=== PATIENT | male | born 1960 | race Caucasian/White ===

== ENCOUNTER 2018-02-14 16:08 | Observation (INO) | payer MEDICAID, SELFPAY ==
[2018-02-14] VITALS (8 sets, daily range): BP systolic 104–142; BP diastolic 62–85; PULSE 74–100; RESP 15–20; TEMP 36.6–36.8; O2SAT 95–99; BMI 37.5; BMI 35.9
--- NOTE | 2018-02-14 16:34 | CT_ITS ---
STUDY: CT BRAIN WITHOUT CONTRAST REASON FOR EXAM: Male, 57 years old. VERTIGO, LT HAND PARESTHESIA, DIZZINESS, LT SIDED CP, HTN, WEAKNESS RADIATION DOSAGE (If Supplied By Facility): CTDIvol = ( 44.99 ) mGy, DLP = ( 812.98 ) mGycm TECHNIQUE: Transaxial CT imaging of the brain was performed without administration of intravenous contrast material. Individualized dose optimization techniques were used for this CT. COMPARISON: None. FINDINGS: Normal soft tissue structures. Normal calvarium. There are calcifications around the cavernous carotid arteries. This is consistent for atherosclerotic disease. Normal size ventricles and extra-axial spaces for the patient's age. Normal white matter tracts of the cerebral hemispheres. Normal basal ganglia and thalami. Normal brainstem. Normal cerebellum. There is no intracranial hemorrhage. There are no findings of an acute ischemic infarction. Normal visualized paranasal sinuses. CT/Brain/Head without Contrast IMPRESSION: Normal unenhanced CT scan of the brain. Electronically Signed: Mark Moulton MD at 17:09 EDT , Service support ,
--- NOTE | 2018-02-14 16:35 | EKG12_ITS ---
Test Reason : CP Blood Pressure : / mmHG Vent. Rate : 099 BPM Atrial Rate : 099 BPM P-R Int : 146 ms QRS Dur : 100 ms QT Int : 344 ms P-R-T Axes : 028 -17 014 degrees QTc Int : 441 ms Normal sinus rhythm Incomplete right bundle branch block Inferior infarct , age undetermined Abnormal ECG Confirmed by SEDRICK TYLER, FRANCESCA ([id number]), telegraph editor KIERAN FIGUEROA ([id number]) on 02/16/2018 1:29:33 PM Referred By: CIARA Confirmed By:FRANCESCA DUBOSE MD
[2018-02-14] MEDS: Ondansetron 4 MG/2 ML Vial IV (17:00)
[2018-02-14] MEDS: LORazepam 2 MG/ML Syringe 0.5 MG IV (17:00)
[2018-02-14] MEDS: 0.9% Normal Saline 1,000 ML 150 ML IV (17:00)
[2018-02-14 17:06] LABS: Anion Gap 7 (5-15); BUN 16 mg/dL (7-18); BUN/Creat Ratio 15.2 RATIO (10-20); Calcium,Total 9.5 mg/dL (8.5-10.1); Chloride 104 mmol/L (98-107); Creatinine, Serum 1.05 mg/dL (0.70-1.30); EST Glomerular Filtration Rate 77 mL/min (>60); Est Glom Filt Rate - Afr Amer 93 mL/min (>60); Estimated Creatinine Clearance 75.75 ml/min; Glucose 116 mg/dL (74-106); Sodium Level 138 mmol/L (136-145)
[2018-02-14 17:33] LABS: Absolute Lymphocyte Count 1.64 X10^3/ul (0.83-4.51); Absolute Neutrophil Count 5.7 X10^3/uL (2.0-7.7); Basophil# 0.04 X10^3/uL; Basophil% 0.5 % (0-1); Eosinophil# 0.18 X10^3/uL; Eosinophils% 2.2 % (0-5); Hematocrit 48.7 % (40-54); Hemoglobin 16.2 g/dl (13.0-16.5); Lymphocyte # 1.64 X10^3/ul (4.0); Lymphocyte % 20.3 % (19-41); Mean Corp Hgb Conc 33.3 g/gl (32-36); Mean Corpuscular Hgb 29.1 pg (27.0-32.0); Mean Corpuscular Volume 87.6 fL (80-94); Mean Platelet Vol. 12.4 fl (6.2-12.0); Monocyte# 0.52 X10^3/uL; Monocyte% 6.4 % (0-10); Neutrophil # 5.68 X10^3/uL (2.7-7.7); Neutrophil % 70.4 % (47-70); Platelet Count 205 K/mm3 (150-450); RBC Distribution Width CV 14.5 % (11.6-14.6); RBC Distribution Width SD 46.4 fl (35.1-43.9); Red Blood Count 5.56 M/mm3 (4.6-6.2); White Blood Count 8.1 K/mm3 (4.4-11.0)
[2018-02-14 17:38] LABS: POSITIVE COUNT NO; POSITIVE DIFFERENTIAL NO; POSITIVE MORPHOLOGY NO
--- NOTE | 2018-02-14 17:50 | RAD_ITS ---
STUDY: X-RAY CHEST REASON FOR EXAM: Male, 57 years old. Symptoms pt having left sided chest pain started this morning. Describes as sore. dizziness noted last night TECHNIQUE: Single frontal view of the chest. COMPARISON: CR Chest Mar 08 2013 7:04pm FINDINGS: Chronic appearing increased interstitial lung markings. There is no demonstrated pleural abnormality. Normal heart size. Normal mediastinum and steven. Normal visualized pulmonary arteries. There is atherosclerotic calcification of the aortic arch with tortuosity. There are diffuse degenerative changes of the visualized thoracic spine. There is degenerative osteoarthritis of the bilateral shoulders. There is no demonstrated abnormality of the visualized soft tissue structures of the upper abdomen. RAD/Chest 1 View (Portable) IMPRESSION: There are no acute findings. Electronically Signed: Mark Moulton MD at 18:03 EDT , Service support ,
--- NOTE | 2018-02-14 18:55 | ED.VISSUMM ---
- ER Visit Summary Date of Service: 02/14/18 Chief Complaint: Chest pain, vertigo, hand tingling History of Present Illness: The patient is a 57 M who reports waking yesterday morning with vertigo. He has had this several years ago. Last evening he developed some waxing and waning chest pain. He describes the pain as going from his left scapula through to his left chest and then radiated across to the right chest. He denies shortness of breath. He was seen by ENT today and had his ears checked and they were unremarkable. He denies prior cardiac history. Physical Examination: Vital signs unremarkable. Patient sitting upright in bed no acute distress. Head neck examination is grossly unremarkable. Heart is regular rate and rhythm. Lung sounds are clear. Chest wall is nontender. Abdomen is soft and nontender. Neuro exam reveals no focal deficits on his exam. His NIH is 0. Test Results: EKG is sinus at 99 with no sign of acute ischemia. Chest x-ray shows no acute findings. Head CT is unremarkable. CBC and chemistry studies normal. Troponin is less than 0.015. Emergency Department Course and Treatment: Patient received Zofran and Ativan for his vertigo. Following completion of his testing he did pass a bedside swallow test and is given aspirin. Patient reports that his vertigo is improved. His chest pain is very minimal at this time. The tingling noted in his left hand is also improved currently. Patient will be admitted for further workup and evaluation. I spoken with the hospitalist. Treatment Plan: [] Disposition: Admit Impression: 1. Vertigo 2. Chest pain 3. Left hand paresthesias This note was generated with [employer] dictation software. It may contain incorrect words, spelling, and punctuation that were not noted in review of the chart prior to signing ED Disposition - Plan for ED Patient: Chief Complaint: Chest Pain Referrals: Bettina Tamayo MD [Primary Care Provider] -
[2018-02-14] MEDS: Aspirin 81 MG TAB.CHEW 243 MG PO (18:58)
--- NOTE | 2018-02-14 19:03 | HP.PCM_ITS ---
Problem List (1) Chest pain Status: Acute (2) Vertigo Status: Acute (3) Tingling of left upper extremity Status: Acute History of Present Illness Date of Admission: 02/14/18 Chief Complaint: chest pain, vertigo, tingling of left upper extremity The patient is a 57 year old M with a history of vertigo, hypertension, hyperlipidemia and GERD. He was admitted through the ED on 02/14/2018 with a complaint of vertigo which started yesterday. He does have a history of vertigo and states is episodic. He said he had sudden acute onset of vertigo which persisted throughout the day. It started around 8 AM when he woke up and then subsequently resolved. This morning at around 10:30 AM when he woke up, he started having tingling in his left upper arm which was of sudden onset and he is never had it before. The tingling persisted up to the time of review. Vertigo also recurred and so he decided to go and see his ENT doctor. His ears were checked which where normal. Patient also started having chest pain earlier today he describes as pressure-like, left-sided, radiating towards left upper arm. He denied any associated lightheadedness or dizziness, palpitations, diaphoresis, abdominal pain, diarrhea vomiting. He states he had chest pain like this in the past and attributed it to GERD. He has a strong family history of coronary artery disease with his brother dying of a massive heart attack and his other family members also having hypertension diabetes and coronary artery disease. On reviewing the ED, vitals were stable and brain CT was negative for any intracranial pathology. Chest x-ray also showed no acute cardiopulmonary pathology. CBC and BMP were unremarkable. Initial troponin was negative. Is been admitted to be managed for vertigo and chest pain. [] Past Medical History Allergies No Known Allergies Allergy (Verified 02/14/18 16:14) Home Medications: Ambulatory Orders Medication Instructions Recorded Aspirin E.C. [Ecotrin] 81 mg PO DAILY@0800 01/13/16 Citalopram [Celexa] 40 mg PO DAILY 01/13/16 Polyethylene Glycol 3350 [[id number]] 17 gm PO DAILY 01/13/16 Docusate Sodium [Colace] 100 mg PO BID PRN PRN 02/14/18 Fluticasone Propionate 2 sprays NASAL DAILY 02/14/18 Lisinopril/Hydrochlorothiazide 1 tablet PO DAILY 02/14/18 [Zestoretic 12.5 Tablet] Pravastatin Sodium 40 mg PO QHS 02/14/18 Trazodone HCl 50 mg PO QHS PRN 02/14/18 Surgical History: - - bilateral carpal tunnel surgery Psychiatric History: No pertinent psych hx Lives: Alone Smoking Status: Former smoker Tobacco Use: Cigarettes Alcohol: None Drugs: None - *Family History Sibling History Items: High Cholesterol, Heart Disease, Hypertension Paternal History Items: Diabetes, High Cholesterol, Heart Disease, Hypertension Review of Systems Constitutional: Denies: Chills, Fever, Malaise, Weakness, Weight Change Eyes: Denies: Blurred vision, Double vision HEENT: Denies: Head Aches, Sinus Congestion, Sinus Drainage Cardiovascular: Reports: Chest Pain, Chest Pressure. Denies: Chest Tightness, Edema, Heaviness, Light Headedness, Palpitations Respiratory: Denies: Cough, Shortness of Breath, Shortness of breath at rest, Sputum production Gastrointestinal: Denies: Abdominal Pain, Nausea, Vomiting Genitourinary: Denies: Dysuria Musculoskeletal: Denies: Joint Pain, Joint Tenderness Skin: Denies: Rash, Wounds Neurological: Reports: Tingling. Denies: Balance problems, Blurred vision, Change in Speech, Tremor, Seizures Psychiatric: Denies: Anxiety, Depression, Homicidal Ideations, Suicidal Idea tions Hematologic/ Lymphatic: Denies: Easy Bruising, Easy Bleeding VTE Information - Inpt Only VTE Present on Admission: No VTE Pharm Prophylaxis ordered?: Yes Patient Problems: Active and Suspected Problems Chest pain (Acute) Vertigo (Acute) Tingling of left upper extremity (Acute) - Physical Exam General: Alert, Oriented x3, Cooperative, No apparent distress HEENT: Atraumatic, PERRLA, EOMI, Normocephalic Oral: Moist Mucosa Neck: Supple, No JVD, Negative Carotid Bruits Lungs: Clear to auscultation, Normal air movement, No rhonchi, No wheeze Cardiovascular: Regular rate, Regular Rhythm, Normal S1, Normal S2, No murmurs Abdomen: Bowel Sounds Present, Soft, Non Tender, Non-Distended, No Hepato- splenomegaly Extremities: No clubbing, No cyanosis, No edema, Capillary Refill Less than 3 Seconds Skin: No rashes, No breakdown Musculoskeletal: No Tenderness to Palpation of Joints or Extremities Lymphatic: No Cervical, Supraclavicular, or Inguinal Adenopathy Neurological: Cranial nerves II-XII grossly intact, Motor Exam 5/5 strength throughout, Muscle tone normal, - - decreased sensation to pinprick over LUE, extending from hand to mid forearm Psych/Mental Status: Normal Affect, Appropriate, Alert and oriented to time, place, person, mood and affect Vital Signs Temp Pulse Resp BP Pulse Ox 97.9 F 85 17 121/75 H 95 02/14/18 16:11 02/14/18 18:33 02/14/18 18:33 02/14/18 18:33 02/14/18 18:33 Oxygen Delivery Method Room Air Weight: 254 lb 6.615 oz Body Mass Index (BMI) 37.5 Laboratory Tests Past 24 Hrs 02/14/18 02/14/18 16:25 16:25 WBC 8.1 RBC 5.56 Hgb 16.2 Hct 48.7 MCV 87.6 MCH 29.1 MCHC 33.3 RDW 14.5 RDW Differential 46.4 H Plt Count 205 MPV 12.4 H Immature Gran % (Auto) 0.200 Neut % (Auto) 70.4 H Lymph % (Auto) 20.3 Barbour % (Auto) 6.4 Eos % (Auto) 2.2 Baso % (Auto) 0.5 Absolute Neuts (auto) 5.7 Absolute Lymphs (auto) 1.64 Total Counted Not Reportable Sodium 138 Potassium 4.0 Chloride 104 Carbon Dioxide 27.0 Anion Gap 7 BUN 16 Creatinine 1.05 Estim Creat Clear Calc 75.75 Est GFR (MDRD) Af Amer 93 Est GFR (MDRD) Non-Af 77 BUN/Creatinine Ratio 15.2 Glucose 116 H Calcium 9.5 Troponin I < 0.015 Assessment/Plan All Active Problems Chest pain (Acute) Vertigo (Acute) Tingling of left upper extremity (Acute) 57 y/o male presenting with a complaint of vertigo for 2 days and numbness and tingling in his hand for one day 1. Recurrent vertigo * Patient states he started having vertigo in 2013 has it episodically. Has been following up with ENT but has not seen a neurologist before. * Admit to PCU with telemetry * start PO meclizine * neurology consult. * 2. TIA * had tingling in his LUE that started ~ 10:30am today. * still tingling and numbness in LUE * CT head was negative. * EKG showed no acute cardiopulmonary process * keep NPO until he passes bedside swallowing evaluation * MRI brain, MRA head and neck with and without contrast tomorrow morning * already on aspirin; hold pravastatin and start atorvastatin 40 mg nightly. * Check lipid panel and A1c. * Allergy consulted. * 3. Atypical chest pain to rule out ACS. * Complaint of left-sided chest pain radiating to his left arm. Has a strong family history of CAD and brother from massive heart attack. * EKG showed no acute changes. We will cycle troponin. Initial troponin was negative. * For stress echo tomorrow morning. * on aspirin and statin * * 4. Hypertension: on lisinopril and HCTZ. fairly controlled. 5. Hyperlipidemia: Pravastatin was switched to atorvastatin on account of it being moderate intensity. DVT prophylaxis: heparin Code status: full code Code Visit OBSV E&M: 50026 Initial observation care L3
--- NOTE | 2018-02-14 21:14 | EKG12_ITS ---
Test Reason : CP TIA Blood Pressure : / mmHG Vent. Rate : 079 BPM Atrial Rate : 079 BPM P-R Int : 154 ms QRS Dur : 104 ms QT Int : 384 ms P-R-T Axes : 025 -06 020 degrees QTc Int : 440 ms Normal sinus rhythm Cannot rule out Inferior infarct (cited on or before 16-MAR-2013) Abnormal ECG When compared with ECG of 16-MAR-2013 11:27, No significant change was found Confirmed by VIPUL MICHELLE ([id number]), state editor KEIRAN FIGUEROA ([id number]) on 02/22/2018 11:43:12 AM Referred By: TOSHIA Confirmed By:VIPUL MICHELLE
[2018-02-14] MEDS: Heparin Injection (Vial) 5,000 UNIT/ML VIAL 5000 UNIT SC (23:15)
[2018-02-14] MEDS: Atorvastatin Calcium 40 MG Tablet PO (23:15)
[2018-02-15] VITALS (7 sets, daily range): BP systolic 112–135; BP diastolic 62–82; PULSE 64–79; RESP 14–16; TEMP 36.2–37.2; O2SAT 93–98
[2018-02-15 00:23] LABS: Hemoglobin A1c 5.9 % (4.2-6.3)
[2018-02-15 04:36] LABS: Absolute Lymphocyte Count 2.14 X10^3/ul (0.83-4.51); Absolute Neutrophil Count 4.1 X10^3/uL (2.0-7.7); Basophil# 0.02 X10^3/uL; Basophil% 0.3 % (0-1); Eosinophil# 0.25 X10^3/uL; Eosinophils% 3.5 % (0-5); Hematocrit 43.6 % (40-54); Hemoglobin 14.8 g/dl (13.0-16.5); Lymphocyte # 2.14 X10^3/ul (4.0); Lymphocyte % 30.2 % (19-41); Mean Corp Hgb Conc 33.9 g/gl (32-36); Mean Corpuscular Hgb 30.3 pg (27.0-32.0); Mean Corpuscular Volume 89.3 fL (80-94); Mean Platelet Vol. 12.1 fl (6.2-12.0); Monocyte# 0.61 X10^3/uL; Monocyte% 8.6 % (0-10); Neutrophil # 4.06 X10^3/uL (2.7-7.7); Neutrophil % 57.3 % (47-70); Platelet Count 178 K/mm3 (150-450); RBC Distribution Width CV 14.4 % (11.6-14.6); RBC Distribution Width SD 46.7 fl (35.1-43.9); Red Blood Count 4.88 M/mm3 (4.6-6.2); White Blood Count 7.1 K/mm3 (4.4-11.0)
[2018-02-15 04:43] LABS: Partial Thromboplast Time 29.1 Seconds (24.1-36.2); Prothrombin Time (Protime)PT. 13.6 SECONDS (11.7-14.9)
[2018-02-15 04:51] LABS: POSITIVE COUNT NO; POSITIVE DIFFERENTIAL NO; POSITIVE MORPHOLOGY NO
[2018-02-15 05:02] LABS: Anion Gap 7 (5-15); BUN 21 mg/dL (7-18); BUN/Creat Ratio 24.8 RATIO (10-20); Calcium,Total 8.6 mg/dL (8.5-10.1); Chloride 106 mmol/L (98-107); Cholesterol 140 mg/dL (200); Creatinine, Serum 0.85 mg/dL (0.70-1.30); EST Glomerular Filtration Rate 98 mL/min (>60); Est Glom Filt Rate - Afr Amer 119 mL/min (>60); Estimated Creatinine Clearance 96.62 ml/min; Glucose 105 mg/dL (74-106); High Density Lipoprotein 32 mg/dL; Potassium 3.7 mmol/L (3.5-5.1); Sodium Level 141 mmol/L (136-145); Triglycerides 246 mg/dL; Very Low Density Lipoprotein 49 mg/dL (5-40)
--- NOTE | 2018-02-15 05:55 | EKG12_ITS ---
Test Reason : AM EKG Blood Pressure : / mmHG Vent. Rate : 070 BPM Atrial Rate : 070 BPM P-R Int : 144 ms QRS Dur : 108 ms QT Int : 416 ms P-R-T Axes : 019 -01 023 degrees QTc Int : 449 ms Normal sinus rhythm Inferior infarct , age undetermined Abnormal ECG When compared with ECG of 14-FEB-2018 20:28, MANUAL COMPARISON REQUIRED, DATA IS UNCONFIRMED Confirmed by VIPUL MICHELLE ([id number]), supervising editor news reel KIERAN FIGUEROA ([id number]) on 02/22/2018 11:44:06 AM Referred By: TOSHIA Confirmed By:VIPUL MICHELLE
[2018-02-15] MEDS: Lisinopril 10 MG Tablet PO (06:35)
[2018-02-15] MEDS: Aspirin E.C. 81 MG Tablet PO (06:35)
--- NOTE | 2018-02-15 08:00 | MRI_ITS ---
STUDY: MRA OF THE HEAD WITHOUT CONTRAST REASON FOR EXAM: Male, 57 years old. Dizziness, numbness, and left upper extremity tingling. TECHNIQUE: 3-D [id number] (TOF) imaging was performed with MIPs. The study was performed unenhanced. Multiple images are limited by patient motion. COMPARISON: None. FINDINGS: Normal bilateral petrous carotid arteries. Normal right cavernous carotid artery with a normal supraclinoid bifurcation. Normal left cavernous carotid artery with a normal supraclinoid bifurcation. Normal right A1 segments of the anterior cerebral artery. Normal left A1 segments of the anterior cerebral artery. Normal intact anterior communicating artery (ACOM). Normal bilateral A2 segments of the anterior cerebral arteries. There is irregularity of the right M1 and M2 branches with minimal luminal narrowing, suggesting atherosclerotic plaque formation, without an occlusion. There is irregularity of the left M1 and M2 branches with minimal luminal narrowing, suggesting atherosclerotic plaque formation, without an occlusion. There is a persistent origin of the right posterior cerebral artery with absence of the P1 segment of the right posterior cerebral artery. There is non-visualization of the left posterior communicating artery (PCOM). Normal bilateral vertebral arteries. There is tortuosity with elongation of the basilar artery. The visualized bilateral superior cerebellar (SCA) arteries are normal. There is absence of the right P1 segment of the posterior cerebral arteries with a normal left P1 segment. Normal visualized bilateral P2 and P3 segments of the posterior cerebral arteries. There is no demonstrated aneurysm of the [place]. There is no major vessel occlusion or hemodynamically significant stenosis. There is no demonstrated abnormality of the visualized brain. MRI/MRA Head ONLY without Contrast IMPRESSION: 1. Limited MRA due to patient motion. 2. No definite hemodynamically significant stenosis or aneurysm. Electronically Signed: Dhara Vigil MD at 11:21 EDT , Service support ,
--- NOTE | 2018-02-15 08:00 | MRI_ITS ---
STUDY: MRA NECK WITH AND WITHOUT CONTRAST REASON FOR EXAM: Male, 57 years old. Dizziness, numbness; and left upper extremity tingling. TECHNIQUE: 3-D imas-ru-[id number] (TOF) imaging was performed in an 1.5 T MRI scanner. 10 ml of Gadavist was administered for the contrast enhanced images. The unenhanced images are nondiagnostic secondary to patient motion. COMPARISON: Prior comparison studies are not available for review at this time. FINDINGS: RIGHT CAROTID ARTERIES: Normal right common carotid artery (CCA). Normal right common carotid bulb. Normal origin of the right internal carotid (ICA) artery without a hemodynamically significant stenosis. Normal visualized cervical portion of the right internal carotid artery. Normal origin of the right external carotid artery (ECA). LEFT CAROTID ARTERIES: Normal left common carotid artery (CCA). Normal left common carotid bulb. Normal origin of the left internal carotid (ICA) artery without a hemodynamically significant stenosis. Normal visualized cervical portion of the left internal carotid artery. Normal origin of the left external carotid artery (ECA). VERTEBRAL ARTERIES: Normal antegrade flow within the bilateral vertebral artery without a hemodynamically significant stenosis. MRI/MRA Neck WITH and W/O Contrast IMPRESSION: No MRA evidence for hemodynamically significant stenosis, thrombosis or dissection. Electronically Signed: Dhara Vigil MD at 11:25 EDT , Service support ,
--- NOTE | 2018-02-15 08:00 | MRI_ITS ---
STUDY: MRI BRAIN WITHOUT CONTRAST REASON FOR EXAM: Male, 57 years old. Dizziness, numbness and left upper extremity tingling. TECHNIQUE: Standardized multiplanar fat and water weighted pulse sequences were obtained. Several images are limited by patient motion. COMPARISON: CT of the head dated February 14, 2018. FINDINGS: Normal size of the ventricles and extra-axial spaces for the patient's age. There are a limited number of small white matter hyperintensities, distributed throughout the deep white matter tracts of the cerebral hemispheres, consistent with mild chronic white matter ischemic changes. There is no evidence for recent intracranial ischemia or other cause of cytotoxic edema on diffusion weighted imaging (DWI). Normal T2* images of the brain without demonstrated susceptibility artifact. There is no demonstrated hemosiderin stain. Normal bilateral basal ganglia. Normal thalami. There is no extra-axial fluid accumulation. Normal flow voids within the major intracranial circulation suggesting patency by spin echo criteria. Normal sella turcica, pituitary gland, infundibular stalk, optic chiasm and hypothalamus. Normal tectal plate and pineal gland. Normal midbrain, caridad and medulla. Normal cerebellum. There are large basal cisterns. Normal bilateral temporal bones. Normal bilateral internal auditory canals. No demonstrated orbital abnormality, within the constraints of a routine brain study. Normal visualized paranasal sinuses. Normal calvarium and skull base. Normal visualized soft tissue structures. There are degenerative changes of the anterior atlantoaxial articulation. MRI/Brain without Contrast IMPRESSION: 1. Involutional changes of the brain, as described above. 2. No MR evidence for acute infarct. Electronically Signed: Dhara Vigil MD at 10:47 EDT , Service support ,
--- NOTE | 2018-02-15 09:17 | STRESSREP_ITS ---
Stress Test Report Date: 02/15/2018 Procedure: Pharmacologic stress nuclear imaging study Indications: Chest pain Consent: Per the patient Procedure: The patient underwent pharmacologic (Regadenoson) evaluation with a peak heart rate of 104 beats per minute (64 predicted maximal heart rate) and a peak blood pressure of 160/86 mmHg. The baseline ECG demonstrated normal sinus rhythm. The peak pharmacologic ECG demonstrated no obvious ECG changes. There were no cardiac dysrhythmias pretest, during pharmacologic infusion, or recovery. There was no complaint of chest discomfort during pharmacologic infusion or recovery. The examination was discontinued secondary to completion of protocol. Impression: 1. Pharmacologic (Regadenoson) evaluation 2. Peak pharmacologic ECG with no obvious ECG changes. 3. There were no cardiac dysrhythmias pretest, during pharmacologic infusion, or recovery. 4. Nuclear images pending Myocardial perfusion imaging study: Technique: The patient was injected with 14.8 millicuries of technetium 99m Cardiolite and subsequently rest SPECT Cardiolite nuclear imaging was obtained in the horizontal long, vertical long, and short axis views. The patient underwent pharmacologic (Regadenoson) evaluation with a peak heart rate of 104 beats per minute (64 % percent predicted maximal heart rate) and a peak blood pressure of 160/86 mmHg. The patient was injected with 44.3 millicuries of technetium 99m Cardiolite and subsequently stress SPECT Cardiolite nuclear imaging was obtained in the horizontal long, vertical long, and short axis views. A gated Cardiolite study at peak stress was obtained. Interpretation: Rest and stress SPECT Cardiolite nuclear imaging status post realignment, normalization, and attenuation correction demonstrate extracardiac/gastrointestinal tracer uptake, otherwise, there appears to be relative uniform tracer uptake/myocardial perfusion. There is end systolic thickening and brightening. The gated Cardiolite study demonstrates myocardial thickening and inward wall motion. The reported LVEF is 74 %. Impression: 1. And stress SPECT currently nuclear imaging demonstrate myocardial perfusion changes appearing compatible with extracardiac/gastrointestinal tracer uptake, otherwise, there appears to be relative uniform tracer uptake and myocardial perfusion appearing within normal limits. 2. The gated Cardiolite study reports an LVEF of 74 %. This note was generated with [employer] software. It may contain incorrect words, spelling, and punctuation that were not noted in checking the note before signing.
[2018-02-15] MEDS: hydroCHLOROthiazide 12.5mg 12.5 MG PO (10:04)
[2018-02-15] MEDS: Citalopram 40 MG TABLET PO (10:04)
[2018-02-15] MEDS: Pantoprazole Sodium 20 MG Tablet PO (10:04)
--- NOTE | 2018-02-15 11:57 | CON.PCM_ITS ---
Reason for Consult Date of Consultation: 02/15/18 Reason for Consultation: VERTIGO History of Present Illness: The patient is a 57 year old right handed white male with long history vertigo, now admitted for chest pain, resolved. no vertigo now. no focal neurologic complaints per admit h and p:The patient is a 57 year old M with a history of vertigo, hypertension, hyperlipidemia and GERD. He was admitted through the ED on 02/14/2018 with a complaint of vertigo which started yesterday. He does have a history of vertigo and states is episodic. He said he had sudden acute onset of vertigo which persisted throughout the day. It started around 8 AM when he woke up and then subsequently resolved. This morning at around 10:30 AM when he woke up, he started having tingling in his left upper arm which was of sudden onset and he is never had it before. The tingling persisted up to the time of review. Vertigo also recurred and so he decided to go and see his ENT doctor. His ears were checked which where normal. Patient also started having chest pain earlier today he describes as pressure-like, left-sided, radiating towards left upper arm. He denied any associated lightheadedness or dizziness, palpitations, diaphoresis, abdominal pain, diarrhea vomiting. He states he had chest pain like this in the past and attributed it to GERD. He has a strong family history of coronary artery disease with his brother dying of a massive heart attack and his other family members also having hypertension diabetes and coronary artery disease. On reviewing the ED, vitals were stable and brain CT was negative for any intracranial pathology. Chest x-ray also showed no acute cardiopulmonary pathology. CBC and BMP were unremarkable. Initial troponin was negative. Is been admitted to be managed for vertigo and chest pain. Past Medical History Allergies No Known Allergies Allergy (Verified 02/14/18 16:14) Home Medications: Ambulatory Orders Medication Instructions Recorded Aspirin E.C. [Ecotrin] 81 mg PO DAILY@0800 01/13/16 Citalopram [Celexa] 40 mg PO DAILY 01/13/16 Polyethylene Glycol 3350 [[id number]] 17 gm PO DAILY 01/13/16 Docusate Sodium [Colace] 100 mg PO BID PRN PRN 02/14/18 Fluticasone Propionate 2 sprays NASAL DAILY 02/14/18 Lisinopril/Hydrochlorothiazide 1 tablet PO DAILY 02/14/18 [Zestoretic 12.5 Tablet] Pravastatin Sodium 40 mg PO QHS 02/14/18 Trazodone HCl 50 mg PO QHS PRN 02/14/18 Surgical History: - - bilateral carpal tunnel surgery Psychiatric History: No pertinent psych hx Lives: Alone Smoking Status: Former smoker Tobacco Use: Cigarettes Alcohol: None Drugs: None - *Family History Sibling History Items: High Cholesterol, Heart Disease, Hypertension Paternal History Items: Diabetes, High Cholesterol, Heart Disease, Hypertension Review of Systems Constitutional: Denies: Chills, Fever, Weight Change HEENT: Denies: Head Aches, Sinus Congestion, Sinus Drainage Cardiovascular: Reports: Chest Pain. Denies: Palpitations Respiratory: Denies: Cough, Shortness of breath at rest, Sputum production Gastrointestinal: Denies: Abdominal Pain, Nausea, Vomiting Genitourinary: Denies: Dysuria Musculoskeletal: Denies: Joint Pain, Joint Tenderness Skin: Denies: Rash, Wounds Neurological: Reports: Headaches, - - vertigo. Denies: Focal weakness, Numbness, Tingling Psychiatric: Denies: Anxiety, Depression, Homicidal Ideations, Suicidal Ideations Hematologic/ Lymphatic: Denies: Easy Bruising, Easy Bleeding Patient Problems: Active and Suspected Problems Chest pain (Acute) Vertigo (Acute) Tingling of left upper extremity (Acute) - Physical Exam General: Alert, Oriented x3, Cooperative HEENT: Atraumatic, PERRLA, EOMI, Normocephalic Musculoskeletal: No Tenderness to Palpation of Joints or Extremities Neurological: Cranial nerves II-XII grossly intact Psych/Mental Status: Normal Affect, Appropriate Vital Signs Temp Pulse Resp BP Pulse Ox 36.2 C L 79 16 135/71 H 93 02/15/18 08:09 02/15/18 11:25 02/15/18 08:09 02/15/18 08:09 02/15/18 08:09 Oxygen Delivery Method Room Air Weight: 113.5 kg Body Mass Index (BMI) 35.9 Intake and Output for Last 24 Hours 02/13/18 02/14/18 02/15/18 23:59 23:59 23:59 Intake Total 200 / 200 Balance 200 / 200 Laboratory Tests Past 24 Hrs 02/14/18 02/14/18 02/14/18 16:25 16:25 16:25 WBC 8.1 RBC 5.56 Hgb 16.2 Hct 48.7 MCV 87.6 MCH 29.1 MCHC 33.3 RDW 14.5 RDW Differential 46.4 H Plt Count 205 MPV 12.4 H Immature Gran % (Auto) 0.200 Neut % (Auto) 70.4 H Lymph % (Auto) 20.3 [place] % (Auto) 6.4 Eos % (Auto) 2.2 Baso % (Auto) 0.5 Absolute Neuts (auto) 5.7 Absolute Lymphs (auto) 1.64 Total Counted Not Reportable PT INR APTT Sodium 138 Potassium 4.0 Chloride 104 Carbon Dioxide 27.0 Anion Gap 7 BUN 16 Creatinine 1.05 Estim Creat Clear Calc 75.75 Est GFR (MDRD) Af Amer 93 Est GFR (MDRD) Non-Af 77 BUN/Creatinine Ratio 15.2 Glucose 116 H Hemoglobin A1c 5.9 Calcium 9.5 Troponin I < 0.015 Triglycerides Cholesterol LDL Cholesterol VLDL Cholesterol HDL Cholesterol 02/14/18 02/14/18 02/15/18 20:20 22:56 04:20 WBC 7.1 RBC 4.88 Hgb 14.8 Hct 43.6 MCV 89.3 MCH 30.3 MCHC 33.9 RDW 14.4 RDW Differential 46.7 H Plt Count 178 MPV 12.1 H Immature Gran % (Auto) 0.100 Neut % (Auto) 57.3 Lymph % (Auto) 30.2 [place] % (Auto) 8.6 Eos % (Auto) 3.5 Baso % (Auto) 0.3 Absolute Neuts (auto) 4.1 Absolute Lymphs (auto) 2.14 Total Counted Not Reportable PT INR APTT Sodium Potassium Chloride Carbon Dioxide Anion Gap BUN Creatinine Estim Creat Clear Calc Est GFR (MDRD) Af Amer Est GFR (MDRD) Non-Af BUN/Creatinine Ratio Glucose Hemoglobin A1c Calcium Troponin I < 0.015 < 0.015 Triglycerides Cholesterol LDL Cholesterol VLDL Cholesterol HDL Cholesterol 02/15/18 02/15/18 04:20 04:20 WBC RBC Hgb Hct MCV MCH MCHC RDW RDW Differential Plt Count MPV Immature Gran % (Auto) Neut % (Auto) Lymph % (Auto) [place] % (Auto) Eos % (Auto) Baso % (Auto) Absolute Neuts (auto) Absolute Lymphs (auto) Total Counted PT 13.6 INR 1.0 APTT 29.1 Sodium 141 Potassium 3.7 Chloride 106 Carbon Dioxide 28.0 Anion Gap 7 BUN 21 H Creatinine 0.85 Estim Creat Clear Calc 96.62 Est GFR (MDRD) Af Amer 119 Est GFR (MDRD) Non-Af 98 BUN/Creatinine Ratio 24.8 H Glucose 105 Hemoglobin A1c Calcium 8.6 Troponin I Triglycerides 246 H Cholesterol 140 LDL Cholesterol 59 VLDL Cholesterol 49 H HDL Cholesterol 32 L mri reviewed, normal mra head and neck normal Assessment/Plan All Active Problems Chest pain (Acute) Vertigo (Acute) Tingling of left upper extremity (Acute) vertigo, chronic, currently in remission rec: increased activity samra out pt followup
--- NOTE | 2018-02-15 14:03 | DCINST_ITS ---
- Discharge Diagnoses Current Active Problems: Current Active and Chronic Problems Chest pain (Acute) Vertigo (Acute) Tingling of left upper extremity (Acute) You will use the following diet at home:: Calorie/Carbohydrate Controlled (specify 1200, 1400, etc) - 1800 wendi per day, Cardiac - <2 g sodium daily Your food should be the consistency of: Regular Your liquids should be the consistency of: Regular/Thin Discharge Activity: Return to Normal Activity Instructions: ED Chest Pain NonCardiac Allergies/Adverse Reactions: Allergies No Known Allergies Allergy (Verified 02/14/18 16:14) Medications to take at Discharge Aspirin E.C. [Ecotrin] 81 mg PO DAILY@0800 01/13/16 Citalopram [Celexa] 40 mg PO DAILY 01/13/16 Polyethylene Glycol 3350 17 gm PO DAILY 01/13/16 Docusate Sodium [Colace] 100 mg PO BID PRN PRN 02/14/18 Fluticasone Propionate 2 sprays NASAL DAILY 02/14/18 Lisinopril/Hydrochlorothiazide [Zestoretic 02/04.5 Tablet] 1 tablet PO DAILY 02/14/18 Pravastatin Sodium 40 mg PO QHS 02/14/18 Trazodone HCl 50 mg PO QHS PRN 02/14/18 Primary Care Physician: Bettina Tamayo MD [Primary Care Provider] - Please follow up with your Primary Care Physician in: 1-2 weeks Test Results: Test results from this visit will be discussed in further detail at your follow- up appointment, if applicable. Please Follow Up With: Frankie Way MD When: 3-4 weeks Please Follow Up With: ENT - your own When: 1-2 days Proposed Discharge Date: 02/15/18
--- NOTE | 2018-02-15 14:08 | DS.PCM_ITS ---
<Rick Nuñez - Last Filed: 02/15/18 14:09> Discharge Date and Diagnosis Date of Admission: 02/14/18 Date of Discharge: 02/15/18 - Primary Discharge Diagnosis Active and Suspected Problems Chest pain (Acute) - musculoskeletal Vertigo (Acute) - BPPV Tingling of left upper extremity (Acute) - TIA ruled out. Prediabetes HTN HLD Anxiety GERD Hospital Course and Treatment Imaging Results: 02/15/18 06:15 Nuclear Stress Test - Chemical [NM] Routine Impression: 1. And stress SPECT currently nuclear imaging demonstrate myocardial perfusion changes appearing compatible with extracardiac/gastrointestinal tracer uptake, otherwise, there appears to be relative uniform tracer uptake and myocardial perfusion appearing within normal limits. 2. The gated Cardiolite study reports an LVEF of 74 %. CT/Brain/Head without Contrast IMPRESSION: Normal unenhanced CT scan of the brain. RAD/Chest 1 View (Portable) IMPRESSION: There are no acute findings. MRI/Brain without Contrast IMPRESSION: 1. Involutional changes of the brain, as described above. 2. No MR evidence for acute infarct. MRI/MRA Head ONLY without Contrast IMPRESSION: 1. Limited MRA due to patient motion. 2. No definite hemodynamically significant stenosis or aneurysm. MRI/MRA Neck WITH and W/O Contrast IMPRESSION: No MRA evidence for hemodynamically significant stenosis, thrombosis or dissection. Consults: Way - Neuro Operations: None Procedures: None Summary of Care Provided: Physical exam on day of discharge: General: Resting comfortably NAD Psych: A/Ox3 normal affect HEENT: PEARRLA AT NC Neck: Supple NT CV: RRR no m/t/r/g/h Resp: CTA Abd: [id number] Soft NT no guarding or rigidity Ext: DP2+= no edema Skin: W/D normal turgor Lymph/Heme: No active bleeding or adenopathy Neuro: CN2-12 intact Hospital course: The patient is a 57 year old M with a hx of obesity, prediabetes, htn, chronic BPPV, who presents to the ER with c/o chest pain with LUE tingling, and episodic vertigo, and headache over the top facet.. The patient has chronic BPPV for which he sees ENT and has had vestibular therapy in the past. He had a CT brain in the ER that showed chronic changes. Chest pain was left-sided and radiating to the left arm. Troponin was negative EKG showed no acute changes. He is admitted for TIA and chest pain workup. Neurology was consulted. The following morning he had a stress echo which was negative for ischemia. Troponin was negative x3. No events on telemetry. MRI of the brain, MRA of the head and neck were all negative. Neurology felt that his symptoms were consistent with his chronic vertigo and recommended outpatient follow-up and Garcia-Chris manuevers. He had a mild headache the following morning however had no other symptoms. As part of his stroke workup and A1c was checked which revealed prediabetes with an A1c of 5.9. Recommended a carb controlled diet at this time and follow-up with his PCP. He follows with ENT as an outpatient for chronic vertigo and was told on his last visit which was in the last week that he should follow-up after getting out of the hospital in 1-2 weeks. I advised him to maintain this follow-up, and follow-up with his PCP in 1-2 weeks, and to follow- up with neurology in 3-4 weeks. This patient was seen by Rick Nuñez PA-C under the supervision of Doctor Lowe. [] - Physical Exam General: Alert, Oriented x3, Cooperative HEENT: Atraumatic, PERRLA, EOMI, Normocephalic Neck: Supple, No JVD, Negative Carotid Bruits Lungs: Clear to auscultation, Normal air movement Cardiovascular: Regular rate, No murmurs Abdomen: Bowel Sounds Present, Soft, Non Tender Extremities: No edema, Capillary Refill Less than 3 Seconds Skin: No rashes, No breakdown Musculoskeletal: No Tenderness to Palpation of Joints or Extremities Neurological: Cranial nerves II-XII grossly intact Psych/Mental Status: Normal Affect, Appropriate, Alert and oriented to time, place, person, mood and affect Vital Signs Temp Pulse Resp BP Pulse Ox 97.1 F L 79 16 135/71 H 93 02/15/18 08:09 02/15/18 11:25 02/15/18 08:09 02/15/18 08:09 02/15/18 08:09 Oxygen Delivery Method Room Air Weight: 250 lb 3.594 oz Body Mass Index (BMI) 35.9 Intake and Output for Last 24 Hours 02/13/18 02/14/18 02/15/18 23:59 23:59 23:59 Intake Total 200 / 200 500 / 500 Balance 200 / 200 500 / 500 Laboratory Tests Past 24 Hrs 02/14/18 02/14/18 02/14/18 16:25 16:25 16:25 WBC 8.1 RBC 5.56 Hgb 16.2 Hct 48.7 MCV 87.6 MCH 29.1 MCHC 33.3 RDW 14.5 RDW Differential 46.4 H Plt Count 205 MPV 12.4 H Immature Gran % (Auto) 0.200 Neut % (Auto) 70.4 H Lymph % (Auto) 20.3 [place] % (Auto) 6.4 Eos % (Auto) 2.2 Baso % (Auto) 0.5 Absolute Neuts (auto) 5.7 Absolute Lymphs (auto) 1.64 Total Counted Not Reportable PT INR APTT Sodium 138 Potassium 4.0 Chloride 104 Carbon Dioxide 27.0 Anion Gap 7 BUN 16 Creatinine 1.05 Estim Creat Clear Calc 75.75 Est GFR (MDRD) Af Amer 93 Est GFR (MDRD) Non-Af 77 BUN/Creatinine Ratio 15.2 Glucose 116 H Hemoglobin A1c 5.9 Calcium 9.5 Troponin I < 0.015 Triglycerides Cholesterol LDL Cholesterol VLDL Cholesterol HDL Cholesterol 02/14/18 02/14/18 02/15/18 20:20 22:56 04:20 WBC 7.1 RBC 4.88 Hgb 14.8 Hct 43.6 MCV 89.3 MCH 30.3 MCHC 33.9 RDW 14.4 RDW Differential 46.7 H Plt Count 178 MPV 12.1 H Immature Gran % (Auto) 0.100 Neut % (Auto) 57.3 Lymph % (Auto) 30.2 [place] % (Auto) 8.6 Eos % (Auto) 3.5 Baso % (Auto) 0.3 Absolute Neuts (auto) 4.1 Absolute Lymphs (auto) 2.14 Total Counted Not Reportable PT INR APTT Sodium Potassium Chloride Carbon Dioxide Anion Gap BUN Creatinine Estim Creat Clear Calc Est GFR (MDRD) Af Amer Est GFR (MDRD) Non-Af BUN/Creatinine Ratio Glucose Hemoglobin A1c Calcium Troponin I < 0.015 < 0.015 Triglycerides Cholesterol LDL Cholesterol VLDL Cholesterol HDL Cholesterol 02/15/18 02/15/18 04:20 04:20 WBC RBC Hgb Hct MCV MCH MCHC RDW RDW Differential Plt Count MPV Immature Gran % (Auto) Neut % (Auto) Lymph % (Auto) [place] % (Auto) Eos % (Auto) Baso % (Auto) Absolute Neuts (auto) Absolute Lymphs (auto) Total Counted PT 13.6 INR 1.0 APTT 29.1 Sodium 141 Potassium 3.7 Chloride 106 Carbon Dioxide 28.0 Anion Gap 7 BUN 21 H Creatinine 0.85 Estim Creat Clear Calc 96.62 Est GFR (MDRD) Af Amer 119 Est GFR (MDRD) Non-Af 98 BUN/Creatinine Ratio 24.8 H Glucose 105 Hemoglobin A1c Calcium 8.6 Troponin I Triglycerides 246 H Cholesterol 140 LDL Cholesterol 59 VLDL Cholesterol 49 H HDL Cholesterol 32 L Discharge Diet: Low fat/ Low Cholesterol, 1800 Calorie Control Diet, 2000 mg Sodium Diet Discharge Activity: Return to Normal Activity Home Medications: Medications to take at Discharge Aspirin E.C. [Ecotrin] 81 mg PO DAILY@0800 01/13/16 Citalopram [Celexa] 40 mg PO DAILY 01/13/16 Polyethylene Glycol 3350 17 gm PO DAILY 01/13/16 Docusate Sodium [Colace] 100 mg PO BID PRN PRN 02/14/18 Fluticasone Propionate 2 sprays NASAL DAILY 02/14/18 Lisinopril/Hydrochlorothiazide [Zestoretic 02/04.5 Tablet] 1 tablet PO DAILY 02/14/18 Pravastatin Sodium 40 mg PO QHS 02/14/18 Trazodone HCl 50 mg PO QHS PRN 02/14/18 Primary Care Physician: Bettina Tamayo MD [Primary Care Provider] - Please follow up with your Primary Care Physician in: 1-2 weeks Please Follow Up With: Frankie Way MD When: 3-4 weeks Please Follow Up With: ENT - your own When: 1-2 days Patient Instructions: ED Chest Pain NonCardiac Disposition: Home Minutes spent on discharge:: 40 Patient Condition:: Stable Medical Necessity - Tobacco Use Smoking Status: Former smoker Tobacco Use: Cigarettes Meaningful Use Info Meaningful Use Diagnoses (Choose all that apply): None applicable <Sheldon Lowe - Last Filed: 02/15/18 16:14> Hospital Course and Treatment Imaging Results: 02/15/18 08:00 Brain without Contrast [MRI] Urgent MRA Head ONLY without Contrast [MRI] Urgent MRI [MRA Neck WITH and W/O Contrast] [MRI] Urgent Summary of Care Provided: The patient is a 57 year old M [] - Physical Exam Vital Signs Temp Pulse Resp BP Pulse Ox 99.0 F 67 16 131/82 H 98 02/15/18 14:58 02/15/18 14:58 02/15/18 14:58 02/15/18 14:58 02/15/18 14:58 Oxygen Delivery Method Room Air Weight: 250 lb 3.594 oz Body Mass Index (BMI) 35.9 Intake and Output for Last 24 Hours 02/13/18 02/14/18 02/15/18 23:59 23:59 23:59 Intake Total 200 / 200 500 / 500 Balance 200 / 200 500 / 500 Laboratory Tests Past 24 Hrs 02/14/18 02/14/18 02/14/18 16:25 16:25 16:25 WBC 8.1 RBC 5.56 Hgb 16.2 Hct 48.7 MCV 87.6 MCH 29.1 MCHC 33.3 RDW 14.5 RDW Differential 46.4 H Plt Count 205 MPV 12.4 H Immature Gran % (Auto) 0.200 Neut % (Auto) 70.4 H Lymph % (Auto) 20.3 [place] % (Auto) 6.4 Eos % (Auto) 2.2 Baso % (Auto) 0.5 Absolute Neuts (auto) 5.7 Absolute Lymphs (auto) 1.64 Total Counted Not Reportable PT INR APTT Sodium 138 Potassium 4.0 Chloride 104 Carbon Dioxide 27.0 Anion Gap 7 BUN 16 Creatinine 1.05 Estim Creat Clear Calc 75.75 Est GFR (MDRD) Af Amer 93 Est GFR (MDRD) Non-Af 77 BUN/Creatinine Ratio 15.2 Glucose 116 H Hemoglobin A1c 5.9 Calcium 9.5 Troponin I < 0.015 Triglycerides Cholesterol LDL Cholesterol VLDL Cholesterol HDL Cholesterol 02/14/18 02/14/18 02/15/18 20:20 22:56 04:20 WBC 7.1 RBC 4.88 Hgb 14.8 Hct 43.6 MCV 89.3 MCH 30.3 MCHC 33.9 RDW 14.4 RDW Differential 46.7 H Plt Count 178 MPV 12.1 H Immature Gran % (Auto) 0.100 Neut % (Auto) 57.3 Lymph % (Auto) 30.2 [place] % (Auto) 8.6 Eos % (Auto) 3.5 Baso % (Auto) 0.3 Absolute Neuts (auto) 4.1 Absolute Lymphs (auto) 2.14 Total Counted Not Reportable PT INR APTT Sodium Potassium Chloride Carbon Dioxide Anion Gap BUN Creatinine Estim Creat Clear Calc Est GFR (MDRD) Af Amer Est GFR (MDRD) Non-Af BUN/Creatinine Ratio Glucose Hemoglobin A1c Calcium Troponin I < 0.015 < 0.015 Triglycerides Cholesterol LDL Cholesterol VLDL Cholesterol HDL Cholesterol 02/15/18 02/15/18 04:20 04:20 WBC RBC Hgb Hct MCV MCH MCHC RDW RDW Differential Plt Count MPV Immature Gran % (Auto) Neut % (Auto) Lymph % (Auto) [place] % (Auto) Eos % (Auto) Baso % (Auto) Absolute Neuts (auto) Absolute Lymphs (auto) Total Counted PT 13.6 INR 1.0 APTT 29.1 Sodium 141 Potassium 3.7 Chloride 106 Carbon Dioxide 28.0 Anion Gap 7 BUN 21 H Creatinine 0.85 Estim Creat Clear Calc 96.62 Est GFR (MDRD) Af Amer 119 Est GFR (MDRD) Non-Af 98 BUN/Creatinine Ratio 24.8 H Glucose 105 Hemoglobin A1c Calcium 8.6 Troponin I Triglycerides 246 H Cholesterol 140 LDL Cholesterol 59 VLDL Cholesterol 49 H HDL Cholesterol 32 L Code Visit Addendum: Dr. Lowe I personally examined the patient and reviewed the chart. I agree with the above. 57-year-old male with past medical history of vertigo, presenting with chest pain and tingling of his left upper extremity. He was worked up both for cardiac injury and stroke. Test test this morning was normal and his workup for stroke was negative. Neurology was consulted and felt that a lot of his symptoms could be explained with his chronic vertigo and recommended increased activity and outpatient follow-up. OBSV E&M: 14014 Observation care discharge
== END 2018-02-15 14:02 | disposition home or self-care (01) ==
LOC: ED 17:08 → PCU 19:14
PROVIDERS: Admitting Provider Student in an Organized Health Care Education/Training Program; Emergency Provider Emergency Medicine; Family Provider Internal Medicine; PCP Internal Medicine; Visit Provider Family Medicine
DX: R07.89 Other chest pain (principal); I10 Essential (primary) hypertension; E78.5 Hyperlipidemia, unspecified; R73.03 Prediabetes; K21.9 Gastro-esophageal reflux disease without esophagitis; F41.9 Anxiety disorder, unspecified; H81.10 Benign paroxysmal vertigo, unspecified ear; R20.2 Paresthesia of skin; Z82.49 Family history of ischemic heart disease and other diseases of the circulatory system; I25.10 Atherosclerotic heart disease of native coronary artery without angina pectoris; Z79.899 Other long term (current) drug therapy; Z79.82 Long term (current) use of aspirin; Z79.51 Long term (current) use of inhaled steroids; Z87.891 Personal history of nicotine dependence
CPT/HCPCS: 36415; 70450; 70544; 70549; 70551; 71045; 78452; 80048; 80061; 83036; 84484; 85025; 85610; 85730; 93005; 93017; 96361; 96372; 96374; 96375; 99218; 99283; A9500; A9585; J7030; A4216; G0378; J2405; J2785

== ENCOUNTER → 2018-04-05 20:05 | Outpatient (CLI) | payer MEDICAID, SELFPAY | PROVIDERS: Family Provider Internal Medicine; PCP Internal Medicine; Visit Provider Nurse Practitioner Primary Care | DX: G47.10 Hypersomnia, unspecified (principal); R06.83 Snoring; R53.83 Other fatigue | CPT/HCPCS: 95810 ==

== ENCOUNTER → 2018-05-02 20:00 | Outpatient (CLI) | payer MEDICAID, SELFPAY | PROVIDERS: Family Provider Internal Medicine; PCP Internal Medicine; Referring Provider Internal Medicine; Visit Provider Internal Medicine | DX: G47.33 Obstructive sleep apnea (adult) (pediatric) (principal) | CPT/HCPCS: 95811 ==

== ENCOUNTER 2019-10-17 14:39 | Emergency (ER) | payer MEDICAID, SELFPAY ==
[2019-10-17] VITALS (9 sets, daily range): BP systolic 126–151; BP diastolic 70–85; PULSE 70–78; RESP 13–24; TEMP 37; O2SAT 19–98; BMI 38.7
--- NOTE | 2019-10-17 15:14 | ED.DCSUM_ITS ---
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 Negative for: Parasthesia, Weakness Narrative: Patient was on a slope he was loading something into the back of a truck and accidentally stepped on a board that he slipped on, not sure the exact mechanism of injury to his ankle but as we came down on it, and he felt immediate severe pain deformity consistent with a fracture or dislocation or both. He presents by EMS he was unable to stand. Denies any other injury or pain. Past Medical History - Allergies and Home Meds Allergies/Adverse Reactions: Allergies No Known Allergies Allergy (Verified 02/14/18 16:14) Primary Care Physician: Bettina Tamayo MD [Primary Care Provider] - Past Medical History: None Surgical History: - - bilateral carpal tunnel surgery Smoking Status: Former smoker - Family History Sibling Family History: Reports: High Cholesterol, Heart Disease, Hypertension Paternal Family History: Reports: Diabetes, High Cholesterol, Heart Disease, Hypertension Review of Systems General: Denies: Chills, Fever, Sweats Eyes: Denies: Visual changes - bilaterally, Diplopia ENT: Denies: Rhinorrhea, Sore throat Cardiovascular: Denies: Chest pain, Palpitations Respiratory: Denies: Dyspnea, Cough, Dyspnea on exertion Gastrointestinal: Denies: Abdominal pain, Nausea, Vomiting, Diarrhea, Melena, Hematochezia Genitourinary: Denies: Dysuria, Hematuria, Frequency Musculoskeletal: Reports: Extremity Pain. Denies: Neck pain, Back pain Skin: Denies: Rash, Wounds Neurological: Denies: Headache, Weakness, Numbness Physical Exam Vital Signs/Narrative: Vital Signs Temp Pulse Resp BP Pulse Ox 10/17/19 14:44 98.6 F 78 18 131/70 H 98 Inital Vital Signs reviewed: Yes - Extremity Exam Right Knee: Limited ROM - Due to pain at the ankle, - - No bony tenderness or signs of trauma/injury including the femur/hip Right Tib fib: - - No tenderness above the ankle including the fibular head. Right Ankle: Deformity - Valgus, Limited ROM, - - Tender throughout the ankle. No tenting of the skin. Right Foot: - - Nontender throughout foot proper. 2+/4 DP pulse. General: Well nourished, Well developed Head: Normocephalic, Atraumatic Eyes: Perrl, EOMI ENT: No Trauma, Moist Mucous Membranes Neck: Nontender, Full ROM Cardiovascular: Regular rate, Regular rhythm, No murmurs Respiratory: No distress, CTA bilaterally, Chest nontender Abdomen: Soft, Nontender, Nondistended, Normal bowel sounds Back: Nontender Skin: Normal color, No rash, No Trauma - skin intact RLE Neurological: Alert, Oriented x3, Cranial nerves II-XII grossly intact, Normal Strength, Normal Sensation Psychological: Normal affect, Normal Mood Diagnostic/Tx/Re-eval - Medical Decision Making Patient's pain was under much better control after the displaced trimalleolar fracture was reduced and splinted. Neurovascular intact distally afterwards. No complications see the procedure notes. Discussed with Dr. Suárez who is on- call for orthopedics, who asked that we refer to podiatry. Discussed with Dr. johanna wright, who will see the patient as an outpatient. Procedures - Lower Extremity Splints Lower Extremity Splint: Juan Carlos Cohn Splint Fabrication: Fabricated Location: Right - NVID after placement Procedure(s): Procedural sedation --patient had had a light meal less than 6 hours prior to arrival, so light sedation was performed after informed consent using midazolam 4 mg and fentanyl 50 mcg. He was retreated with fentanyl 50 mcg about 30 minutes afterwards. There were no complications patient tolerated well, no vomiting. Closed reduction right ankle --with distracting the right foot gently and holding by the toes, I was able to straighten the deformity w/ little force. Postreduction x-rays show reasonably good alignment. ED Disposition - Plan for ED Patient: Disposition: Home or Assisted Living Diagnosis: Closed trimalleolar fracture of right ankle Instructions: ED Ankle Fracture Prescriptions: Oxycodone HCl/Acetaminophen [Percocet 5/325] 1 tablet PO Q6H PRN PRN 3 Days #12 tablet PRN Reason: Pain Transmission Status: Sent to [facility] Referrals: Jasiel Pitt DPM [STAFF PHYSICIAN] - 3-5 Days (call for appt) Additional Instructions: NO weight-bearing on your right leg.
[2019-10-17] MEDS: Morphine 4 MG/ML Syringe IV (15:20)
--- NOTE | 2019-10-17 15:25 | RAD_ITS ---
STUDY: X-RAY - RIGHT ANKLE REASON FOR EXAM: Male, 59 years old. FALL TECHNIQUE: 2 view(s) of the ankle. COMPARISON: None. FINDINGS: There are acute impacted minimally displaced fractures of the distal tibia and fibula with derangement of the ankle mortise. The remainder the visualized osseous structures to is mild degenerative disease. Soft tissue is not significantly swollen around the ankle joint. RAD/Ankle 2 Views IMPRESSION: Acute impacted minimally displaced fractures of the distal tibia and fibula with derangement of the ankle mortise. Consider CT scan for further evaluation. Electronically Signed: Jose Rodrigues, at 16:35 EDT Tel , Service support ,
[2019-10-17] MEDS: fentaNYL 100 MCG/2 ML Ampul 50 MCG IV ×2 (15:56→16:55)
[2019-10-17] MEDS: Midazolam 5 MG/ML Syringe 4 MG IV (16:56)
--- NOTE | 2019-10-17 17:00 | RAD_ITS ---
STUDY: X-RAY - RIGHT ANKLE REASON FOR EXAM: Male, 59 years old. POST REDUCTION TECHNIQUE: 2 view(s) of the ankle. COMPARISON: Earlier same day. FINDINGS: Status post casting and reduction. There are multiple minimally displaced or virtually nondisplaced fractures of the distal fibula and distal tibia with derangement of the ankle mortise and associated soft tissue swelling. Fractures include an oblique virtually nondisplaced fracture of the distal fibula and a likely comminuted medial malleolus fracture. RAD/Ankle 2 Views IMPRESSION: Status post casting and reduction of multiple minimally displaced distal tibial and fibular fractures as above. Electronically Signed: Jose Rodrigues, at 18:08 EDT Tel , Service support ,
[2019-10-17] MEDS: oxyCODONE 5 MG Tablet PO (17:58)
--- NOTE | 2019-10-17 18:05 | CM.ED ---
Social Work Consult: Resources Informant: Nursing staff Nursing reporting concern of patient being able to manage own care at home with limited/no support in community. Patient is currently non-weighty bearing to right lower extremity due to ankle fracture. Met with patient in room. Introduced self as well as rn social work role. Patient agreeable to meeting with this rn social work. Patient states to live at home alone in a 1-story home with 4 steps to enter the home. Patient states to transport self via own vehicle prior to ankle fracture/fall. Patient states to have no one. Patient states to do all own medical care, grocery shopping, management of medication, bills etc. Patient states to have no concerns on returning to home alone. Patient denies having a medical alert system but to have a phone and plans to keep cell phone with patient at all times in the event that patient would fall at home. Patient states to have all needed groceries in the home and to have taxi vouchers for transportation to doctors appointments. This rn social work voicing concern about support for patient in the community. Patient states I will be fine. Patient states history of Depression and Anxiety and to have medication for Anxiety but the Depression medication did not work. Patient states to have had a suicidal thoughts about a year ago and denies any active suicidal thoughts/plans/intents. Patient provided with crisis hotline, local resource guide. Patient voicing no further concerns for discharge to home. Nursing staff to set up patient with crutches and taxi to home. Updated nursing staff on social work assessment. Ermelinda Sol MSW, [place]
[2019-10-17] MEDS: Ondansetron ODT 4 MG Tablet 8 MG PO (18:43)
== END 2019-10-17 20:14 | disposition home or self-care (01) ==
PROVIDERS: Emergency Provider Emergency Medicine; PCP Internal Medicine
DX: S82.851A Displaced trimalleolar fracture of right lower leg, initial encounter for closed fracture (principal); W01.0XXA Fall on same level from slipping, tripping and stumbling without subsequent striking against object, initial encounter; Y93.89 Activity, other specified; Y92.9 Unspecified place or not applicable; Z87.891 Personal history of nicotine dependence
CPT/HCPCS: 27818; 73600; 73610; 96374; 99152; 99285; A4216

== ENCOUNTER 2019-10-18 16:54 | Inpatient (IN) | payer MEDICAID, SELFPAY ==
[2019-10-17 14:44] VITALS: BMI 38.7
[2019-10-18 16:55] VITALS: BP 164/84; PULSE 81; RESP 16; TEMP 36.7; O2SAT 98; BMI 34.2
--- NOTE | 2019-10-18 17:10 | ED.VIS.GEN ---
History of Present Illness Chief Complaint: Lower Extremity Injury Informant: Patient Onset: Yesterday Current Severity: Moderate Maximum Severity: Moderate Narrative: Patient returns to the ER today secondary to increased right ankle pain. He was seen yesterday with a trimalleolar fracture. He was sedated and fracture was reduced. He was able to use crutches to get to the taxi yesterday. Patient states when the taxi dropped him off at home it took him 2-1/2 hours to get from the taxi to his chair. 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 He has not been able to get up to get himself meals. He called squad today to be brought back into the emergency room. - Past Medical History (1) Hypertension Status: Chronic (2) High cholesterol Status: Chronic (3) GERD (gastroesophageal reflux disease) Status: Chronic (4) Depression Status: Chronic Past Medical History - Allergies and Home Meds Allergies/Adverse Reactions: Allergies No Known Allergies Allergy (Verified 02/14/18 16:14) Primary Care Physician: Bettina Tamayo MD [Primary Care Provider] - Prior records reviewed: Yes Surgical History: - - bilateral carpal tunnel surgery Smoking Status: Former smoker - Family History Sibling Family History: Reports: High Cholesterol, Heart Disease, Hypertension Paternal Family History: Reports: Diabetes, High Cholesterol, Heart Disease, Hypertension Review of Systems General: Denies: Chills, Fever Eyes: Denies: Visual changes - bilaterally ENT: Denies: Bilateral ear pain Cardiovascular: Denies: Chest pain Respiratory: Denies: Dyspnea, Cough Gastrointestinal: Denies: Abdominal pain, Nausea, Vomiting, Diarrhea Musculoskeletal: Reports: Swelling, Extremity Pain Neurological: Denies: Headache Hematologic: Denies: Easy bruising, Easy bleeding Allergy: Denies: Uticaria Physical Exam Vital Signs/Narrative: Vital Signs Temp Pulse Resp BP Pulse Ox 10/18/19 16:55 98.0 F 81 16 164/84 H 98 Inital Vital Signs reviewed: Yes General: Well nourished, Well developed Head: Normocephalic ENT: Moist mucous membranes Neck: Supple Cardiovascular: Regular rate, Regular rhythm Respiratory: No distress, CTA bilaterally Abdomen: Soft, Nontender Extremities: - - Right lower extremity in a splint. Good cap refill in his toes. He can wiggle toes. Strong pulses noted. Neurological: Alert, Oriented x3 Psychological: Normal affect Diagnostic/Tx/Re-eval - Medical Decision Making I spoke with Dr. Pitt after seeing the patient. He will admit the patient to his service and plan to do surgery. Patient has had labs and pain medication ordered. ED Disposition - Plan for ED Patient: Disposition: Acute Care Hospital [facility] Diagnosis: Ankle fracture Referrals: Bettina Tamayo MD [Primary Care Provider] -
[2019-10-18] MEDS: Ondansetron 4 MG/2 ML Vial IV (17:30)
[2019-10-18] MEDS: fentaNYL 100 MCG/2 ML Ampul 50 MCG IV (17:31)
[2019-10-18] MEDS: 0.9% Normal Saline 1,000 ML 150 ML IV (17:32)
--- NOTE | 2019-10-18 17:32 | NURSING ---
[address] [facility]
[2019-10-18 17:33] VITALS: BP 143/77; PULSE 74; RESP 15; TEMP 36.6; O2SAT 99
[2019-10-18 17:35] LABS: Absolute Neutrophil Count 7.9 X10^3/uL (2.0-7.7); Basophil# 0.03 X10^3/uL; Basophil% 0.3 % (0-1); Eosinophil# 0.07 X10^3/uL; Eosinophils% 0.7 % (0-5); Hematocrit 43.5 % (40-54); Hemoglobin 14.4 g/dL (13.0-16.5); Lymphocyte % 17.1 % (19-41); Mean Corp Hgb Conc 33.1 g/dL (32-36); Mean Corpuscular Hgb 29.8 pg (27.0-32.0); Mean Corpuscular Volume 89.9 fL (80-94); Mean Platelet Vol. 10.9 fl (6.2-12.0); Monocyte# 0.74 X10^3/uL; NRBC Flagged by Analyzer 0 % (0-5); Neutrophil # 7.87 X10^3/uL (2.7-7.7); Neutrophil % 74.7 % (47-70); Platelet Count 204 K/mm3 (150-450); RBC Distribution Width CV 13.8 % (11.6-14.6); RBC Distribution Width SD 44.5 fl (35.1-43.9); Red Blood Count 4.84 M/mm3 (4.6-6.2); White Blood Count 10.5 K/mm3 (4.4-11.0)
--- NOTE | 2019-10-18 17:41 | PCM.PROGNOTE ---
<Ayanna Wagner - Last Filed: 10/18/19 18:30> Patient Problems: Active and Suspected Problems Ankle fracture (Acute) Subjective: Patient seen and examined. Evaluated in ER yesterday due to minimally displaced fractures of the distal tibia and fibula. Patient underwent casting and reduction. He was discharged home with further outpatient follow-up however returns with increased pain. Podiatry admitting patient for surgical intervention. He has a past medical history of hypertension, hyperlipidemia, GERD, depression, BPPV. - Physical Exam Vitals/I&O's: Vital Signs Temp Pulse Resp BP Pulse Ox 98 F 74 15 143/77 H 99 10/18/19 17:33 10/18/19 17:33 10/18/19 17:33 10/18/19 17:33 10/18/19 17:33 Oxygen Delivery Method Room Air Weight: 238 lb 12.17 oz Body Mass Index (BMI) 34.2 General: Alert, Oriented x3, Cooperative HEENT: Atraumatic, PERRLA, EOMI, Normocephalic Neck: Supple, No JVD, Negative Carotid Bruits Lungs: Clear to auscultation, Normal air movement Cardiovascular: Regular rate, No murmurs Abdomen: Bowel Sounds Present, Soft, Non Tender Extremities: No edema, Capillary Refill Less than 3 Seconds Skin: No rashes, No breakdown, - - Right ankle cast Musculoskeletal: Tenderness - Right ankle Neurological: Cranial nerves II-XII grossly intact, Neuro grossly intact Psych/Mental Status: Normal Affect, Appropriate Laboratory Results 10/18/19 17:25: WBC 10.5, RBC 4.84, Hgb 14.4, Hct 43.5, MCV 89.9, MCH 29.8, MCHC 33.1, RDW Std Deviation 44.5 H, RDW Coeff of Petra 13.8, Plt Count 204, MPV 10.9, Immature Gran % (Auto) 0.200, Neut % (Auto) 74.7 H, Lymph % (Auto) 17.1 L, [place] % (Auto) 7.0, Eos % (Auto) 0.7, Baso % (Auto) 0.3, Absolute Neuts (auto) 7.9 H, Absolute Lymphs (auto) 1.80, Nucleated RBC % 0 10/18/19 17:25: PT Pending, INR Pending, APTT Pending 10/18/19 17:25: Sodium Pending, Potassium Pending, Chloride Pending, Carbon Dioxide Pending, Anion Gap Pending, BUN Pending, Creatinine Pending, Est GFR (MDRD) Af Amer Pending, Est GFR (MDRD) Non-Af Pending, BUN/Creatinine Ratio Pending, Glucose Pending, Calcium Pending Current Medications Hydrocodone Bitart/Acetaminophen ([place] 5mg-325mg) 1 - 2 tablet PO Q6H PRN PRN PRN Reason: Pain Score 1-10/10 Docusate Sodium (Colace) 100 mg PO BID PRN PRN PRN Reason: Constipation Hydromorphone HCl (Dilaudid Inj) 1 mg IV Q4H PRN PRN PRN Reason: Pain Score 6-10/10 Sodium Chloride () 1,000 mls @ 150 mls/hr IV .Q6H40M GABRIELA Last Admin: 10/18/19 17:32 Dose: 150 mls/hr Documented by: Ondansetron HCl (Zofran) 4 mg IV Q8H PRN PRN PRN Reason: NAUSEA Medical Necessity - Tobacco Use Smoking Status: Former smoker Assessment/Plan All Active Problems Chest pain (Acute) Vertigo (Acute) Tingling of left upper extremity (Acute) Ankle fracture (Acute) 1. Acute right trimalleolar fracture- management per podiatry, plan for surgical intervention. Dr. Pitt following. PRN pain regimen. PT/OT. Obtain preoperative EKG. Per ACS NSQIP surgical risk calculator, patient is below average risk for surgery. 2. Hypertension- stable, continue lisinopril/HCTZ regimen. 3. Hyperlipidemia- continue statin. 4. Chronic BPPV 5. GERD- not on regimen. 6. KIT- not on PAP. Recommend outpatient follow up. DVT prophylaxis- Lovenox sc This patient was seen by NATASHA Ayala under the supervision of Dr. Pascual. <Nguyen Pascual - Last Filed: 10/18/19 18:54> - Physical Exam Vitals/I&O's: Vital Signs Temp Pulse Resp BP Pulse Ox 98 F 74 15 143/77 H 99 10/18/19 17:33 10/18/19 17:33 10/18/19 17:33 10/18/19 17:33 10/18/19 17:33 Oxygen Delivery Method Room Air Weight: 108.3 kg Body Mass Index (BMI) 34.2 Laboratory Results 10/18/19 17:25: WBC 10.5, RBC 4.84, Hgb 14.4, Hct 43.5, MCV 89.9, MCH 29.8, MCHC 33.1, RDW Std Deviation 44.5 H, RDW Coeff of Petra 13.8, Plt Count 204, MPV 10.9, Immature Gran % (Auto) 0.200, Neut % (Auto) 74.7 H, Lymph % (Auto) 17.1 L, [place] % (Auto) 7.0, Eos % (Auto) 0.7, Baso % (Auto) 0.3, Absolute Neuts (auto) 7.9 H, Absolute Lymphs (auto) 1.80, Nucleated RBC % 0 10/18/19 17:25: PT 13.4, INR 1.1, APTT 26.8 10/18/19 17:25: Sodium 140, Potassium 3.4 L, Chloride 106, Carbon Dioxide 27.0, Anion Gap 7, BUN 14, Creatinine 0.86, Estim Creat Clear Calc 93.14, Est GFR (MDRD) Af Amer 116, Est GFR (MDRD) Non-Af 95, BUN/Creatinine Ratio 16.2, Glucose 112 H, Calcium 8.7 Current Medications Hydrocodone Bitart/Acetaminophen ([place] 5mg-325mg) 1 - 2 tablet PO Q6H PRN PRN PRN Reason: Pain Score 1-10/10 Docusate Sodium (Colace) 100 mg PO BID PRN PRN PRN Reason: Constipation Lisinopril/HCTZ (Zestoretic 10/12.5 Tablet) 1 tablet PO DAILY GABRIELA Hydromorphone HCl (Dilaudid Inj) 1 mg IV Q4H PRN PRN PRN Reason: Pain Score 6-10/10 Last Admin: 10/18/19 18:18 Dose: 1 mg Documented by: Sodium Chloride () 1,000 mls @ 150 mls/hr IV .Q6H40M GABRIELA Last Admin: 10/18/19 17:32 Dose: 150 mls/hr Documented by: Ondansetron HCl (Zofran) 4 mg IV Q8H PRN PRN PRN Reason: NAUSEA Potassium Chloride (K-Dur) 60 meq PO X1 ONE Stop: 10/18/19 18:33 Pravastatin Sodium (Pravachol) 40 mg PO QHS GABRIELA Assessment/Plan This patient was seen in conjunction with Ayanna Wagner NP. I have independently interviewed and examined the patient and reviewed pertinent historical, laboratory, and other data. Please refer to her note for patient's presentation, findings, and recommendations. 59-year-old male with past medical history of hypertension, hyperlipidemia, KIT comes in after a fall and sustains fracture of his left ankle. Was seen in the ED on 10/17/19 wit a trimalleolar fracture. Close reduction of the right ankle was done under light sedation yesterday. Patient was subsequently discharged. Patient presents back again with worsening pain and will be going for surgery tomorrow by podiatry. We are consulted for medical management. He complains of severe pain in the right ankle. Denied any fever chills or shortness of breath or chest pain or shortness of breath. History of KIT but does not use CPAP Vitals were reviewed -stable Physical Exam: Gen: Obese, not pale, not jaundiced, alert oriented x3, in pain CVS:HS I +II, regular, no murmurs RESP: Diminished at lung bases GI: BS present and normal, nontender, no palpable organs EXT:No edema, right lower leg in Anurag wrap, tender to touch Labs reviewed: ASSESSMENT: 1. Acute right trimalleolar fracture 2. Hypokalemia 3. Hypertension 4. Hyperlipidemia 5. GERD 6. KIT not on CPAP Meds reviewed Plan: Continue with pain control, follow-up on surgical recommendations Replace potassium, recheck BMP in a.m. 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
[2019-10-18 17:46] LABS: International Normalized Ratio 1.1; Prothrombin Time (Protime)PT. 13.4 SECONDS (11.7-14.9)
[2019-10-18 17:47] LABS: Anion Gap 7 (5-15); BUN 14 mg/dL (7-18); BUN/Creat Ratio 16.2 RATIO (10-20); Calcium,Total 8.7 mg/dL (8.5-10.1); Chloride 106 mmol/L (98-107); Creatinine, Serum 0.86 mg/dL (0.70-1.30); EST Glomerular Filtration Rate 95 mL/min (>60); Est Glom Filt Rate - Afr Amer 116 mL/min (>60); Estimated Creatinine Clearance 93.14 ml/min; Glucose 112 mg/dL (74-106); Partial Thromboplast Time 26.8 Seconds (24.1-36.2); Potassium 3.4 mmol/L (3.5-5.1); Sodium Level 140 mmol/L (136-145)
--- NOTE | 2019-10-18 17:55 | HP.PCM_ITS ---
History of Present Illness Date of Admission: 10/18/19 Chief Complaint: Right ankle fracture The patient is a 59 year old gentleman with history of HTN, HL, GERD, as well as depression is being admitted for right ankle trimalleolus fracture with plans for ORIF. Patient fractured ankle yesterday, he relates he twisted ankle on a slope. Patient presented to ER yesterday, fracture was reduced and splinted. He was discharged home. Patient relates he was not able to get any pain meds, and has no help as he lives at home. Patient was not able to get to my office today. Patient called 911 and came back to ER due to significant pain and inability to care for himself. He has no other complaints at this time. Past Medical History Past Medical History (Chronic Problems): Chronic Problems Hypertension (Chronic) High cholesterol (Chronic) GERD (gastroesophageal reflux disease) (Chronic) Depression (Chronic) Allergies No Known Allergies Allergy (Verified 02/14/18 16:14) Home Medications: Ambulatory Orders Medication Instructions Recorded Aspirin E.C. [Ecotrin] 81 mg PO DAILY@0800 01/13/16 Lisinopril/Hydrochlorothiazide 1 tablet PO DAILY 02/14/18 [Zestoretic 1012.5 Tablet] Pravastatin Sodium 40 mg PO QHS 02/14/18 Oxycodone HCl/Acetaminophen 1 tab PO Q6H PRN PRN 3 Days #12 tab 10/17/19 [Percocet 5/325] Surgical History: - - bilateral carpal tunnel surgery Psychiatric History: No pertinent psych hx Smoking Status: Former smoker - *Family History Sibling History Items: High Cholesterol, Heart Disease, Hypertension Paternal History Items: Diabetes, High Cholesterol, Heart Disease, Hypertension Review of Systems Constitutional: Denies: Chills, Fever Gastrointestinal: Denies: Nausea, Vomiting VTE Information - Inpt Only VTE Present on Admission: No VTE Mechan Device Prophylaxis: SCD's Patient Problems: Active and Suspected Problems Ankle fracture (Acute) - Physical Exam Vitals/I&O's: Vital Signs Temp Pulse Resp BP Pulse Ox 98 F 74 15 143/77 H 99 10/18/19 17:33 10/18/19 17:33 10/18/19 17:33 10/18/19 17:33 10/18/19 17:33 Oxygen Delivery Method Room Air Weight: 108.3 kg Body Mass Index (BMI) 34.2 General: Alert, Oriented x3, Cooperative, No apparent distress Extremities: Capillary Refill Less than 3 Seconds, Peripheral Pulses Normal, - - Right ankle in splint - reviewed post reduction films which shows good reduction, CFT < 2 seconds to all toes right foot, patient able to dorsiflex and plantarflex toes. Musculoskeletal: - - pain to right ankle c/w ankle fracture Laboratory Results 10/18/19 17:25: WBC 10.5, RBC 4.84, Hgb 14.4, Hct 43.5, MCV 89.9, MCH 29.8, MCHC 33.1, RDW Std Deviation 44.5 H, RDW Coeff of Petra 13.8, Plt Count 204, MPV 10.9, Immature Gran % (Auto) 0.200, Neut % (Auto) 74.7 H, Lymph % (Auto) 17.1 L, [place] % (Auto) 7.0, Eos % (Auto) 0.7, Baso % (Auto) 0.3, Absolute Neuts (auto) 7.9 H, Absolute Lymphs (auto) 1.80, Nucleated RBC % 0 10/18/19 17:25: PT 13.4, INR 1.1, APTT 26.8 10/18/19 17:25: Sodium 140, Potassium 3.4 L, Chloride 106, Carbon Dioxide 27.0, Anion Gap 7, BUN 14, Creatinine 0.86, Estim Creat Clear Calc 93.14, Est GFR (MDRD) Af Amer 116, Est GFR (MDRD) Non-Af 95, BUN/Creatinine Ratio 16.2, Glucose 112 H, Calcium 8.7 Current Medications Hydrocodone Bitart/Acetaminophen ([place] 5mg-325mg) 1 - 2 tablet PO Q6H PRN PRN PRN Reason: Pain Score 1-10/10 Docusate Sodium (Colace) 100 mg PO BID PRN PRN PRN Reason: Constipation Hydromorphone HCl (Dilaudid Inj) 1 mg IV Q4H PRN PRN PRN Reason: Pain Score 6-10/10 Sodium Chloride () 1,000 mls @ 150 mls/hr IV .Q6H40M GABRIELA Last Admin: 10/18/19 17:32 Dose: 150 mls/hr Documented by: Ondansetron HCl (Zofran) 4 mg IV Q8H PRN PRN PRN Reason: NAUSEA Assessment/Plan All Active Problems Chest pain (Acute) Vertigo (Acute) Tingling of left upper extremity (Acute) Ankle fracture (Acute) Right trimalleolus ankle fracture Comorbities Reviewed right ankle pre and post reduction films. Due to patient's significant pain and inability to care for himself with limited support patient will be admitted for ORIF of the ankle with plans for post op nursing facility placement for on going care while this heals. This was discussed with patient and he agrees with this plan. No weightbearing right foot, keep right foot elevated at all times. Pain management: Dilaudid 1mg q 4 hr prn pain, Also norco has been ordered. DVT Prophylaxis: SCD left, will plan to start Lovenox post op. Other comorbidities: Medicine team was consulted, assistance greatly appreciate d. Procedure Criteria Procedure Type: Elective COVID Risk Discussion: The surgeon/proceduralist and patient have discussed in detail the risk of exposure to and/or potential harm posed by the COVID-19 virus with having a surgery/procedure at this time versus the risk of delaying the surgery/procedure. It is not possible to know either the risk of delaying the surgery or procedure or chance of getting an infection with perfect accuracy, but a joint decision was made between the patient and the surgeon/proceduralist to proceed at this time with the scheduled surgery/procedure as indicated on the consent form.
--- NOTE | 2019-10-18 18:05 | CT_ITS ---
STUDY: CT RIGHT ANKLE WITHOUT CONTRAST REASON FOR EXAM: Male, 59 years old. Ankle fracture RADIATION DOSAGE (If Supplied By Facility): CTDIvol = ( 15.35 ) mGy, DLP = ( 428.60 ) mGycm TECHNIQUE: Thin section transaxial imaging of the ankle was obtained, with sagittal and coronal as well as 3-D reconstructed images. Individualized dose optimization techniques were used for this CT. COMPARISON: 2 views of the right ankle May 18, 2019 FINDINGS: The lower leg and ankle are enclosed by a dorsal lateral plaster splint. There is a comminuted intra-articular fracture of the medial malleolus with particular posterior medial displacement of the larger medial malleolar fragment. The fracture lines are in continuity with a comminuted, intra-articular vertical fracture of the posterior tibial malleolus. There is slight distraction and displacement of the more lateral posterior malleolar fracture fragments. There is a comminuted oblique fracture through the distal metadiaphysis of the fibula with dorsal lateral displacement and overriding of the distal fracture fragments. Cluster of small fragments interposed between the lateral margin of the tibial plafond and the lateral malleolus are most likely related to the fibular fracture. There is mild to moderate lateral and mild dorsal subluxation of the talar dome relative to the distal tibia. There is a moderate to large plantar calcaneal spur. Sclerosis along the medial cortical margin of the dome of the talus may be degenerative in nature or the sequelae of focal impaction injury. Mild degenerative change at the medial subtalar articulation. There is narrowing of the talonavicular joint. Mild degenerative cortical spurring at the medial margin of the navicular. Degenerative arthrosis with a 4.5 mm periarticular degenerative ossicle also seen at the articulation between the lateral plantar aspect of the navicular and medial margin of the calcaneal cuboid articulation. Normal navicular-cuneiform, cuneiform tarsal bones and intercuneiform articulations. Normal tarsometatarsal articulations and visualized metatarsi. There is soft tissue swelling about the ankle. CT/Extremity Lower without Contra IMPRESSION: Trimalleolar right ankle fracture, as described, with lateral displacement of the larger malleolar fragments and the tibiotalar articulation. There are additional degenerative changes of the hind foot, as described Electronically Signed: Andi Arciniega MD at 19:43 EDT , Service support ,
[2019-10-18 18:12] VITALS: BMI 34.2; BMI 34.3
[2019-10-18 18:15] VITALS: BP 126/57; PULSE 76; RESP 16; TEMP 36.9; O2SAT 97
[2019-10-18] MEDS: HYDROmorphone 1 MG/ML Syringe IV ×2 (18:18→22:28)
--- NOTE | 2019-10-18 18:28 | EKG12_ITS ---
Test Reason : PRE-OP Blood Pressure : / mmHG Vent. Rate : 079 BPM Atrial Rate : 079 BPM P-R Int : 166 ms QRS Dur : 102 ms QT Int : 394 ms P-R-T Axes : 025 -06 016 degrees QTc Int : 451 ms Normal sinus rhythm Inferior infarct , age undetermined, cannot be excluded Abnormal ECG Confirmed by SEDRICK TYLER, FRANCESCA ([id number]), video tape editor ALEJO TAO ([id number]) on 10/24/2019 11:18:54 AM Referred By: DR MIKE Confirmed By:FRANCESCA DUBOSE MD
[2019-10-18 20:54] LABS: AST(SGOT) 19 U/L (15-37); Alanine Aminotransfer ALT/SGPT 23 U/L (16-61); Albumin, Serum 3.4 g/dL (3.2-5.0); Alkaline Phosphatase 98 U/L (45-117); Bilirubin, Direct 0.35 mg/dL (0.00-0.30); Globulin 3.6 g/dL (2.2-4.2)
[2019-10-18 20:59] LABS: Hemoglobin A1c 5.7 % (3.8-5.6)
--- NOTE | 2019-10-18 21:25 | NURSING ---
Notified respiratory therapy that a COVID test was ordered for surgery for this pt.
[2019-10-18] MEDS: Pravastatin 40 MG Tablet PO (22:32)
[2019-10-18 23:49] LABS: Probe Check PASS; Specimen Processing Control PASS
[2019-10-19] VITALS (10 sets, daily range): BP systolic 114–165; BP diastolic 57–88; PULSE 69–91; RESP 16–20; TEMP 36.1–37.3; O2SAT 95–100; BMI 34.2
[2019-10-19] MEDS: 0.9% Normal Saline 1,000 ML 150 ML IV ×5 (00:14→20:07)
[2019-10-19] MEDS: HYDROmorphone 1 MG/ML Syringe IV ×2 (02:51→10:50)
[2019-10-19] MEDS: HYDROcodone Bitartrate/Apap 5/325 Tablet PO (06:22)
--- NOTE | 2019-10-19 10:33 | PCM.PN.HOSP ---
Patient Problems: Active and Suspected Problems Ankle fracture (Acute) Reason for Visit: ankle fracture Subjective: still with ankle pain, but improved currently. Vitals/I&O's: Vital Signs Temp Pulse Resp BP Pulse Ox 36.8 C 70 18 132/62 H 95 10/19/19 08:40 10/19/19 08:49 10/19/19 08:40 10/19/19 08:40 10/19/19 08:40 Oxygen Delivery Method Room Air Weight: 108.3 kg Body Mass Index (BMI) 34.2 Intake and Output for Last 24 Hours 10/17/19 10/18/19 10/19/19 23:59 23:59 23:59 Intake Total 2412.5 / 2412.5 Output Total 500 / 500 Balance 1912.5 / 191.5 General: Alert, No apparent distress HEENT: Atraumatic, Normocephalic Oral: Moist Mucosa, No Gingival or Mucosal Lesions/ Ulcerations Neck: No Nodes, Thyroid Normal Size and Texture Lungs: Clear to auscultation, Normal air movement, No rhonchi, No wheeze Cardiovascular: Regular rate, Regular Rhythm, Normal S1, Normal S2, No murmurs Abdomen: Bowel Sounds Present, Soft, Non Tender, Non-Distended, No Hepato-splenomegaly Extremities: No edema, No Calf Tenderness Psych/Mental Status: Normal Affect, Appropriate Laboratory Results 10/18/19 17:25: WBC 10.5, RBC 4.84, Hgb 14.4, Hct 43.5, MCV 89.9, MCH 29.8, MCHC 33.1, RDW Std Deviation 44.5 H, RDW Coeff of Petra 13.8, Plt Count 204, MPV 10.9, Immature Gran % (Auto) 0.200, Neut % (Auto) 74.7 H, Lymph % (Auto) 17.1 L, [place] % (Auto) 7.0, Eos % (Auto) 0.7, Baso % (Auto) 0.3, Absolute Neuts (auto) 7.9 H, Absolute Lymphs (auto) 1.80, Nucleated RBC % 0 10/18/19 17:25: PT 13.4, INR 1.1, APTT 26.8 10/18/19 17:25: Sodium 140, Potassium 3.4 L, Chloride 106, Carbon Dioxide 27.0, Anion Gap 7, BUN 14, Creatinine 0.86, Estim Creat Clear Calc 93.14, Est GFR (MDRD) Af Amer 116, Est GFR (MDRD) Non-Af 95, BUN/Creatinine Ratio 16.2, Glucose 112 H, Calcium 8.7 10/18/19 17:25: Total Bilirubin 1.90 H, Direct Bilirubin 0.35 H, AST 19, ALT 23, Alkaline Phosphatase 98, Total Protein 7.0, Albumin 3.4, Globulin 3.6 10/18/19 17:25: Hemoglobin A1c 5.7 H 10/18/19 21:57: COVID-19 (JULIET) Not Detected Current Medications Hydrocodone Bitart/Acetaminophen ([place] 5mg-325mg) 1 - 2 tablet PO Q6H PRN PRN PRN Reason: Pain Score 1-10/10 Last Admin: 10/19/19 06:22 Dose: 2 tablet Documented by: Docusate Sodium (Colace) 100 mg PO BID PRN PRN PRN Reason: Constipation Hydrochlorothiazide () 12.5 mg PO DAILY [facility] Last Admin: 10/19/19 08:49 Dose: Not Given Documented by: Hydromorphone HCl (Dilaudid Inj) 1 mg IV Q4H PRN PRN PRN Reason: Pain Score 6-10/10 Last Admin: 10/19/19 02:51 Dose: 1 mg Documented by: Sodium Chloride () 1,000 mls @ 150 mls/hr IV .[id number] [facility] Last Admin: 10/19/19 06:19 Dose: 150 mls/hr Documented by: Sodium Chloride () 250 mls @ 15 mls/hr IV .[id number] PRN PRN Reason: Saline Flush Sodium Chloride () 250 mls @ 15 mls/hr IV .[id number] PRN PRN Reason: Additional IVPB Infusion Lisinopril (Zestril) 10 mg PO DAILY [facility] Last Admin: 10/19/19 08:49 Dose: Not Given Documented by: Ondansetron HCl (Zofran) 4 mg IV Q8H PRN PRN PRN Reason: NAUSEA Pravastatin Sodium (Pravachol) 40 mg PO QHS [facility] Last Admin: 10/18/19 22:32 Dose: 40 mg Documented by: Sodium Chloride () 10 - 40 ml IV UD PRN PRN Reason: SALINE FLUSH STROKE Vital Signs/Narrative: Vital Signs Temp Pulse Resp BP Pulse Ox 10/19/19 08:49 70 10/19/19 08:40 36.8 C 75 18 132/62 H 95 Medical Necessity - Tobacco Use Smoking Status: Former smoker Assessment/Plan All Active Problems Chest pain (Acute) Vertigo (Acute) Tingling of left upper extremity (Acute) Ankle fracture (Acute) 1. right trimallleolar fracture: OR today non-weight bearing COVID-19 negative check 25 OH D level. 2. HTN stable continue lisinopril, HCTZ 3. VTE prophylaxis: SCDs. Add chemical prophylaxis after surgery. Would treat while non-weight bearing. Inpatient E&M: 21869 Subs Hosp L2
[2019-10-19] MEDS: 0.9% Saline Lock 10 ML Syringe IV (10:50)
--- NOTE | 2019-10-19 12:15 | CASEMGMT ---
RN DARIA HOME MANAGER CM to room to meet with patient for initial transition planning/care coordination assessment. NEY HUFF introduced self and role at [facility]. Pt voices understanding and consents to assessment at this time. Pt resting in bed in no distress at this time. Pt is A/O at this time and answers all questions appropriately. Care providers, pharmacy, and demographics verified/updated at this time. PCP: Dr Tamayo. Pt states he is interested in switching to a different PCP. Given list of local PCP's. Specialists: Denies Preferred Pharmacy: [facility] Insurance: [employer] Prescription Benefit: Yes Living Will/HPOA: Pt does not currently have LW/HCPOA and declines info at this time. Pt made aware that he can contact as an out-pt and make appt in the future if he decides he would like to talk with someone about this or would like to utilize [facility] social work for advanced directive completion. LNOK//limited support: No NOK or emergenceny contacts listed on pt's demographics and he states he does not want any listed as he states no one has anything to do with me and I haven't had anything to do with anyone for a long time. Pt states he has a son who is 41 yrs-old but he has not seen him since he was 3 yrs-old. Pt states he has not been in contact with any family/has not seen them since 2007 and he does not have any friends. He states he keeps to himself. Pt states he has struggled with depression, loneliness, and suicidal ideations in the past, but denies current suicidal ideations. He states he would be open to receiving resources to Counseling center. SHERIDAN, Cyn Erazo, made aware. Pt states he would also be interested in talking w/Supervisor Liquefaction. Call placed to Ray/Supervisor Liquefaction and he was made aware. Living Arrangements: Lives alone in an apt w/4 steps to enter, w/rails on the rt side. Pt was independent w/ADL's and IADL's prior to ankle fracture, but states he is not able to take care of himself now d/t the injury and pain. Pt states he does not have anyone to assist him w/anything. Transportation: Pt states was driving prior to injury. States could use taxi service if needed. DME: Has crutches. If pt would return home, may need shower chair and walker. HHC/SNF: No history of either. Pt states is not able to care for himself @ home and would like to go to [facility] or SNF. SW aware. PLAN: TBD. Pt wishes to go to [facility] or another SNF @ discharge. Will follow PT/OT evals. If pt would discharge home, follow for DME needs and HHC. SW consult for resources for Counseling Center. Per MISHRAN RN CM
--- NOTE | 2019-10-19 13:47 | CHAPLAIN ---
Type of Pastoral Visit _x__ Initial Visit ___ Follow-up Visit ___ On-call Visit ___ General Patient Visit ___ Spiritual Assessment ___ Family Conference ___ Bereavement ___ Rapid Response ___ Code Blue ___ Other (describe below) Pastoral Care Referral From _x__ Patient ___ Family ___ Nurse ___ Physician ___ Lead Oxide Mill Tender _x__ Tax Clerk ___ Other (describe below) Sacrament/Intervention _x__ Active listening ___ Anointing ___ Latter-Day ___ Bereavement ___ Communion _x__ Valerie exploration ___ _x__ Life review _x__ Prayer ___ Reconciliation ___ Sacrament of Sick _x__ Supportive presence ___ Wedding ___ Other (describe below) Pastoral Comments CM requested support for this patient as he indicated desire for spiritual care and visitation before surgery; pt is talkative about many life issues; pt welcomes visit and prayer; pt does not have meaningful family or friend support and considers himself more animal focused than human focused; would welcome further visits
--- NOTE | 2019-10-19 13:52 | CASEMGMT ---
Social Work Note SW received referral for possible SNF placement. Pt also has history of suicidal ideations but denied any current thoughts. Pt also interested in counseling resources. Pt is off floor for surgery. SW will follow up with pt tomorrow. Cyn Erazo CURTAIN FELLER BLINDSTITCH, POLISHER AND SANDER
--- NOTE | 2019-10-19 14:53 | RAD_ITS ---
STUDY: X-RAY - RIGHT ANKLE REASON FOR EXAM: Male, 59 years old. ORIF, RIGHT ANKLE FRACTURE TECHNIQUE: Intraoperative fluoroscopy COMPARISON: None. FINDINGS: Intraoperative fluoroscopic images demonstrate repair of fibular fracture with plate and screws and fixation of medial malleolus fracture with partially threaded screws. It then of the procedure the bones are in anatomic alignment. For additional details refer to operative report. RAD/Ankle min 3 Views IMPRESSION: Intraoperative fluoroscopy of bimalleolar ankle repair. Electronically Signed: Lianna Molina, at 20:35 EDT Tel , Service support ,
[2019-10-19] MEDS: Bupivacaine Mpf 0.5% 30 ML VIAL (17:04)
--- NOTE | 2019-10-19 17:35 | OP.PCM_ITS ---
Report of Operation Date of Procedure: 10/19/19 Pre-Operative Diagnosis: Trimalleolus right ankle fracture Post-Operative Diagnosis: Same Surgery/Procedure Performed:: Open reduction internal fixation of the right ankle music manager: yes - Dr. Yenifer Dong Type of Anesthesia:: General Specimen's removed: None Estimated Blood Loss (mL): 15mL Description of Procedure: Indications: This is a 59 year old male who sustained a right trimalleolar ankle fracture. Xrays and CT scan obtained, there was trimalleolar ankle fracture with displacement present. Patient elected to proceed forward with open reduction internal fixation of the trimalleolar ankle fracture. The procedure was reviewed with him in detail. The rationale of the procedure was reviewed with him. The goals and the expectations were discussed and reviewed with him. The possible benefits vs risks and all potential complications were discussed and reviewed with the patient. Advised patient risks include but not limited to are pain, swelling, blood clot, need further surgery, complex regional pain syndrome, bleeding, loss of function, weakness, delayed healing, nonhealing, deformity, arthritis, scarring, loss of limb, loss of life. The patient expressed understanding and agreement, and elected to proceed forward with the procedure. All of patient's questions were answered. The consent forms were reviewed with him and he freely signed them. No guarantees were given or implied. Operative Procedure: The patient was brought back to the operating room and was placed on the operating room table in the supine position. The patient was carefully secured to the operating room table with a safety belt around his waist. The patient received 2 grams of IV Cefazolin for antibiotic prophylaxis. The anesthesia team gave the patient general anesthesia. A well padded pneumatic tourniquet was applied around the right thigh. The right lower extremity was scrubbed, prepped, and draped in the usual aseptic fashion. The right foot/ankle was elevated for 3 minutes and the right thigh pneumatic tourniquet was inflated to 300mmHg. The ankle was noted to be very unstable due to the trimalleolar fracture. There were slight fracture blisters but not at level of incision sites. Using a 15 blade, a skin incision was made overlying the lateral malleolus. Careful dissection was completed down to the lateral malleolus fracture. The periosteum was left intact. There was an oblique lateral malleolus fracture. The fibula was brought out to length and was rotated back to normal position, it was stabilized with a bone clamp. The fracture was fixated using rigid open reduction internal fixation technique with 1 Arthrex a titanium distal fibular plate, which was applied across the fracture site using a combination of 2.7mm locking screws distally and 3.5mm locking and cortical screws proximally through the plate. The clamp was removed. There fracture was reduced, very stable, and in good position. This was confirmed visually as well as using intra operative fluoroscopy. Attention was directed to the medial malleolus. A skin incision was made overlying the medial malleolus using a 15 scalpel blade. Careful blunt dissection was completed down to the medial malleolus where the fracture was identified, it was comminuted. There was soft tissue inter position between the fracture fragments. This was composed of periosteum. The periosteum was moved out from in between the fracture fragments and the medial malleolus was reduced back manually into normal position. The medial malleolus fracture site was fixated with two 4.0mm Arthrex cannulated screws. There fracture was reduced, stable, and in good position. This was confirmed visually as well as using intra operative fluoroscopy. There was good bone to bone contact. There was noted to be some mild instability of the distal syndesmosis, and the syndesmosis was reduced, and fixated using one Arthrex Tightrope and appropriately tensioned. At this time, the distal ankle syndesmosis was stressed with a bone hook as well as with dorsiflexion external rotation stress test, and it was noted be be stable with no gapping present. The posterior fragment was reduced and did not need to be fixated. At this time there was noted to be excellent stability to the ankle joint, range of motion was smooth and gliding normally. There was no popping, clicking, or crepitus present. Intraoperative fluoroscopy was used to check the site and it was noted fibular length and tib fib overlap was normal, ankle mortise with medial and lateral gutters in normal position/alignment with good positioning of the plate, screws, and tight rope. There was good bone to bone alignment of the fracture sites. There was excellent stability to the ankle / fracture site. The ankle was stressed under fluoroscopy and negative anterior drawer, normal talar tilt, no medial gutter gapping with external stress test, and no gapping or instability with Cotton test as noted above at end of procedure. The surgical site was flushed out with copious amounts of normal saline solution. The subcutaneous tissue was reapproximated using 3-0 and 4-0 Vicryl, and the skin was 3-0 Nylon. 10mL of 0.5% Marcaine plain was given as a saphenous nerve block to aid post operative pain control. The patient will receive a popliteal nerve block by the anesthesia team. A dressing was applied which consisted of betadine soaked adaptic, 4x4 gauze, kerlix, webril, guillermina bandages, and well padded below knee posterior splint w/ heel offloaded. Prior to closure and dressing application the right pneumatic tourniquet was deflated and it was noted all hemostasis was achieved. There was immediate return of vascular flow to the foot/ankle, CFT < 2 seconds, and normal temperature present. Total tourniquet time was 120 minutes. Also of note, all vital structures, including all vital neurovascular and tendon structures were properly identified, protected and retracted as necessary. The patient tolerated the above procedure well and anesthesia well with no complications. The patient was transported to the recovery room in good condition and vital signs stable. Post op orders were placed, no weightbearing right foot, keep right foot elevated. He will be followed as inpatient for post op pain control and observation. Grafts/Implants Used: 1 Arthrex plate w/ screws, tightrope, 4-0 arthrex cannulated screws
--- NOTE | 2019-10-19 17:57 | RAD_ITS ---
STUDY: X-RAY - RIGHT ANKLE REASON FOR EXAM: Male, 59 years old. POST OP RIGHT ANKLE TECHNIQUE: 3 view(s) of the ankle. COMPARISON: October 17, 2019 FINDINGS: A new distal one third cortical screw construct is present fixating the distal fibular fracture fragments with now normal alignment. 2 partially threaded last screws are present through the medial malleolus and distal tibial metaphysis fixating the previously displaced fracture fragments in this region. Cortical plate-screw construct is present across the distal tibia and fibula/high syndesmotic region. The soft tissues are swollen. Expected postoperative gas. Bandage and splint material noted. RAD/Ankle min 3 Views IMPRESSION: Status post hardware fixation of ankle fractures Electronically Signed: Boogie Zafar MD at 22:04 EDT , Service support ,
[2019-10-19] MEDS: Pravastatin 40 MG Tablet PO (22:55)
[2019-10-20 02:55] VITALS: BP 110/53; PULSE 83; RESP 20; TEMP 37.7; O2SAT 97
[2019-10-20] MEDS: 0.9% Normal Saline 1,000 ML 150 ML IV ×4 (02:57→23:44)
[2019-10-20 06:48] VITALS: BP 110/55; PULSE 70; RESP 18; TEMP 37.2; O2SAT 97
[2019-10-20] MEDS: Enoxaparin 40 MG/0.4 ML Syringe SC (06:51)
[2019-10-20] MEDS: Cefazolin 1 GM/50 ML BAG IV ×3 (09:19→21:52)
[2019-10-20 09:20] LABS: Vitamin D,25 Hydroxy 31.9 ng/mL
[2019-10-20] MEDS: Docusate Sodium 100 MG Capsule PO (09:25)
[2019-10-20] MEDS: Lisinopril 10 MG Tablet PO (09:26)
[2019-10-20] MEDS: hydroCHLOROthiazide 12.5mg 12.5 MG PO (09:26)
[2019-10-20] MEDS: HYDROcodone Bitartrate/Apap 5/325 Tablet PO ×3 (09:27→23:41)
--- NOTE | 2019-10-20 10:52 | CASEMGMT ---
Addendum entered by Cyn Erazo 10/20/19 13:22: PT/OT available. SW faxed referral to [facility]. Original Note: Social Work Note SW in to speak with pt. SW introduced self and role at [facility]. Pt is alert and orientated x3. Pt confirms that he wishes to discharge to SNF. SW provided pt with list of SNF that accept pt's insurance. Pt states first choice is [facility] and second choice is [facility]. SW explained referral process and that pt will need pre-cert. Pt states understanding. SW then spoke with pt regarding history of depression and history of suicidal ideations. Pt confirms that he has history of depression and has had suicidal thoughts before. Pt states he noticed the depression after his mom in 2006 from Ovarian Cancer and then his brother in 2008 of massive heart attack. Pt states that he was close with both his mother and brother. Pt states that he doesn't really have any family or friends near him. Pt states that he is on dating websites but nothing has come from them. Pt states that he is wanting to look for a new place and mentioned even possibly moving out of [place] to [facility]. Pt states that he is currently on [employer] and will be using them to look for a new place. Pt states that he used to be on medications for his depression but states he took himself off of them. Pt denied ever being in counseling and denied wanting counseling resources. Pt states that he never has attempted suicide and its been about a year since he had any suicidal thoughts. At this time, pt denied any current suicidal thoughts/plans/ideations. SW again offered to provide pt with counseling resources, but pt denied. SW waiting for PT/OT notes as they will be needed for referral. SW will then fax referral to [facility]. Plan: SNF pending acceptance and pre-cert Cyn Erazo CASE MANAGEMENT ASSISTANT, RESIDENT CARE PROVIDER
--- NOTE | 2019-10-20 11:25 | PN_ITS ---
Patient Problems: Active and Suspected Problems Ankle fracture (Acute) Reason for Visit: ankle fracture Subjective: having chest pain radiating down left arm. chest pain has been an ongoing issue for the past several years. Has been evaluated with stress tests in the past and has been negative. Vitals/I&O's: Vital Signs Temp Pulse Resp BP Pulse Ox 37.2 C 70 18 110/55 L 97 10/20/19 06:48 10/20/19 06:48 10/20/19 06:48 10/20/19 06:48 10/20/19 06:48 Oxygen Flow Rate (L/min) 2 Oxygen Delivery Method Room Air Weight: 108.3 kg Body Mass Index (BMI) 34.2 Intake and Output for Last 24 Hours 10/18/19 10/19/19 10/20/19 23:59 23:59 23:59 Intake Total 5082.5 / 5082.5 2300 / 2300 Output Total 2625 / 2625 775 / 775 Balance 2457.5 / 2457.5 1525 / 1525 General: Alert, No apparent distress HEENT: Atraumatic, Normocephalic Oral: Moist Mucosa, No Gingival or Mucosal Lesions/ Ulcerations Neck: No Nodes, Thyroid Normal Size and Texture Lungs: Clear to auscultation, Normal air movement, No rhonchi, No wheeze, No rales Cardiovascular: Regular rate, Regular Rhythm, Normal S1, Normal S2, No murmurs Abdomen: Bowel Sounds Present, Soft, Non Tender, Non-Distended, No Hepato- splenomegaly Extremities: No edema, No Calf Tenderness Psych/Mental Status: Normal Affect, Appropriate Laboratory Results 10/20/19 05:30: Vitamin D 25-Hydroxy 31.9 Current Medications Hydrocodone Bitart/Acetaminophen ([place] 5mg-325mg) 1 - 2 tablet PO Q6H PRN PRN PRN Reason: Pain Score 1-10/10 Last Admin: 10/20/19 09:27 Dose: 2 tablet Documented by: Docusate Sodium (Colace) 100 mg PO BID PRN PRN PRN Reason: Constipation Last Admin: 10/20/19 09:25 Dose: 100 mg Documented by: Enoxaparin Sodium (Lovenox) 40 mg SC DAILY@0600 GABRIELA Last Admin: 10/20/19 06:51 Dose: 40 mg Documented by: Hydrochlorothiazide () 12.5 mg PO DAILY [facility] Last Admin: 10/20/19 09:26 Dose: 12.5 mg Documented by: Hydromorphone HCl (Dilaudid Inj) 1 mg IV Q4H PRN PRN PRN Reason: Pain Score 6-10/10 Last Admin: 10/19/19 10:50 Dose: 1 mg Documented by: Sodium Chloride () 1,000 mls @ 150 mls/hr IV .Q6H40M [facility] Last Infusion: 10/20/19 09:38 Dose: 0 mls/hr Documented by: Sodium Chloride () 250 mls @ 15 mls/hr IV .[id number] PRN PRN Reason: Saline Flush Sodium Chloride () 250 mls @ 15 mls/hr IV .[id number] PRN PRN Reason: Additional IVPB Infusion Cefazolin Sodium () 1 gm in 50 mls @ 100 mls/hr IV Q8 [facility] Stop: 10/21/19 06:29 Last Admin: 10/20/19 09:19 Dose: 100 mls/hr Documented by: Lisinopril (Zestril) 10 mg PO DAILY [facility] Last Admin: 10/20/19 09:26 Dose: 10 mg Documented by: Ondansetron HCl (Zofran) 4 mg IV Q8H PRN PRN PRN Reason: NAUSEA Pravastatin Sodium (Pravachol) 40 mg PO QHS [facility] Last Admin: 10/19/19 22:55 Dose: 40 mg Documented by: Sodium Chloride () 10 - 40 ml IV UD PRN PRN Reason: SALINE FLUSH Last Admin: 10/19/19 10:50 Dose: 10 ml Documented by: Medical Necessity - Tobacco Use Smoking Status: Former smoker Assessment/Plan All Active Problems Chest pain (Acute) Vertigo (Acute) Tingling of left upper extremity (Acute) Ankle fracture (Acute) 1. right trimallleolar fracture: * ORIF * non-weight bearing * COVID-19 negative * check 25 OH D level. 2. HTN * stable * continue lisinopril, HCTZ 3. chest pain: * atypical * has been worked up in past and has been negative * DW nursing, will change AM meds to earlier than 1000, so that he can get his home meds. He said he is a reflux medication, but he does not know what it is. Will start pantoprazole. 4. VTE prophylaxis: SCDs. Add chemical prophylaxis after surgery. Would treat while non-weight bearing. Inpatient E&M: 67191 Subs Hosp L2
[2019-10-20 12:48] VITALS: BP 117/63; PULSE 77; RESP 18; TEMP 36.7; O2SAT 99
[2019-10-20] MEDS: Pantoprazole Sodium 40 MG Tablet PO (13:40)
--- NOTE | 2019-10-20 14:08 | CASEMGMT ---
Addendum entered by Cyn Erazo 10/20/19 15:18: SW received message from Cherry at [facility] stating she is able to accept pt and will submit for pre-cert. SW completed convalescent 7000 in HENS. SW placed HENS, Green sheet, transport forms and COVID screening tool on pt's chart in the event pre-cert is obtained. Original Note: Social Work Note SW received message from Little at [facility] stating she has no male beds available at this time. SW placed a call to [facility] and [facility] has no beds available. SW back in to speak with pt. SW updated pt that [facility] and [facility] has no beds available at this time. Pt states next choice is [facility] and then if they can accept the choice after them is [facility]. SHERIDAN placed a call to [facility] and spoke with Cherry. Cherry agreeable to reviewing information. SHERIDAN faxed referral to [facility]. Plan: SNF pending acceptance and pre-cert Cyn Erazo POWER HOUSE CONTROL ROOM OPERATOR, EXTENSION WORKER
--- NOTE | 2019-10-20 14:32 | VDLE_ITS ---
Reason For Study: pain RIGHT GSV is normal. CFV is compressible, spontaneous, phasic, competent and demonstrates normal augmentation. FV is compressible, spontaneous, phasic, competent and demonstrates normal augmentation. POP V is compressible, spontaneous, phasic, competent and demonstrates normal augmentation. T/P Trunk is compressible. PTV is compressible. RT PerV is compressible. Procedure Exam performed portable in patient room. The exam was abbreviated due to the COVID 19 protocol. The exam was diagnostic. A preliminary report was called and/or faxed to [facility]. Interpretation Summary Deep veins of the right lower extremity are patent and compressible segmentally. There is no evidence of right lower extremity deep vein thrombosis. Valvular competence appears intact within the proximal deep venous system on the right . The right great saphenous vein appears patent and compressible segmentally. Ordering Physician: Jasiel Pitt Performed By: Ramón Mcknight RVT
--- NOTE | 2019-10-20 14:33 | PN_ITS ---
Patient Problems: Active and Suspected Problems Ankle fracture (Acute) Subjective: Patient was seen today for follow up on right ankle ORIF. Patient is sitting up in bed, he relates there is pain to ankle but appears pain controlled at this time. He is watching TV. He does relate to calf pain. No other complaints at this time. - Physical Exam Vitals/I&O's: Vital Signs Temp Pulse Resp BP Pulse Ox 98.1 F 77 18 117/63 99 10/20/19 12:48 10/20/19 12:48 10/20/19 12:48 10/20/19 12:48 10/20/19 12:48 Oxygen Flow Rate (L/min) 2 Oxygen Delivery Method Room Air Weight: 108.3 kg Body Mass Index (BMI) 34.2 Intake and Output for Last 24 Hours 10/18/19 10/19/19 10/20/19 23:59 23:59 23:59 Intake Total 5082.5 / 5082.5 2975 / 2975 Output Total 2625 / 2625 1750 / 1750 Balance 2457.5 / 2457.5 1225 / 1225 General: Alert, Oriented x3, Cooperative, No apparent distress Extremities: Capillary Refill Less than 3 Seconds, - - Right foot/ankle/leg: Dressing/splint clean, dry and intact; Sensation intact to toes intact, patient able to dorsiflex and plantarflex toes, there is some calf pain, CFT < 2 seconds to all toes. Laboratory Results 10/20/19 05:30: Vitamin D 25-Hydroxy 31.9 Current Medications Hydrocodone Bitart/Acetaminophen ([place] 5mg-325mg) 1 - 2 tablet PO Q6H PRN PRN PRN Reason: Pain Score 1-10/10 Last Admin: 10/20/19 09:27 Dose: 2 tablet Documented by: Docusate Sodium (Colace) 100 mg PO BID PRN PRN PRN Reason: Constipation Last Admin: 10/20/19 09:25 Dose: 100 mg Documented by: Enoxaparin Sodium (Lovenox) 40 mg SC DAILY@0600 [facility] Last Admin: 10/20/19 06:51 Dose: 40 mg Documented by: Ergocalciferol (Vitamin D) 50,000 unit PO Q7D [facility] Last Admin: 10/20/19 13:39 Dose: 50,000 unit Documented by: Hydrochlorothiazide () 12.5 mg PO DAILY [facility] Last Admin: 10/20/19 09:26 Dose: 12.5 mg Documented by: Hydromorphone HCl (Dilaudid Inj) 1 mg IV Q4H PRN PRN PRN Reason: Pain Score 6-10/10 Last Admin: 10/19/19 10:50 Dose: 1 mg Documented by: Sodium Chloride () 1,000 mls @ 150 mls/hr IV .Q6H40M [facility] Last Infusion: 10/20/19 14:08 Dose: 150 mls/hr Documented by: Sodium Chloride () 250 mls @ 15 mls/hr IV .[id number] PRN PRN Reason: Saline Flush Sodium Chloride () 250 mls @ 15 mls/hr IV .[id number] PRN PRN Reason: Additional IVPB Infusion Cefazolin Sodium () 1 gm in 50 mls @ 100 mls/hr IV Q8 [facility] Stop: 10/21/19 06:29 Last Infusion: 10/20/19 14:08 Dose: Infused Documented by: Lisinopril (Zestril) 10 mg PO DAILY [facility] Last Admin: 10/20/19 09:26 Dose: 10 mg Documented by: Ondansetron HCl (Zofran) 4 mg IV Q8H PRN PRN PRN Reason: NAUSEA Pantoprazole Sodium (Protonix) 40 mg PO DAILY [facility] Pravastatin Sodium (Pravachol) 40 mg PO QHS [facility] Last Admin: 10/19/19 22:55 Dose: 40 mg Documented by: Sodium Chloride () 10 - 40 ml IV UD PRN PRN Reason: SALINE FLUSH Last Admin: 10/19/19 10:50 Dose: 10 ml Documented by: Medical Necessity - Tobacco Use Smoking Status: Former smoker Assessment/Plan All Active Problems Chest pain (Acute) Vertigo (Acute) Tingling of left upper extremity (Acute) Ankle fracture (Acute) Right trimalleolus ankle fracture s/p ORIF on 10/19/2019 Comorbities Dressing clean, dry and intact. No suspicion for infection. Ordered right lower extremity venous doppler due to calf pain. No weightbearing right foot, keep right foot elevated at all times. Pain management: Dilaudid 1mg q 4 hr prn pain, Also norco has been ordered. Antibiotic Prophylaxis: course of cefazolin 1g IV q 8 hours. DVT Prophylaxis: SCD left, Lovenox 40mg subcutaneous once daily was started today. D/C Planning: Pending acceptance to nursing facility. Other comorbidities: Medicine team assistance greatly appreciated.
[2019-10-20] MEDS: HYDROmorphone 1 MG/ML Syringe IV (15:11)
--- NOTE | 2019-10-20 18:43 | PCA ---
LISSET SCOTT CALLED THIS SEC AND TOLD HER AT 1830 THAT THEY HAVE RECEIVED PRECERT FOR PATIENT, WHEN MEDICALLY READY PATIENT CAN COME TO [facility]. THIS SEC INFORMED ANYA THE RN THAT PRECERT WAS RECIEVED.
[2019-10-20 18:48] VITALS: BP 115/60; PULSE 78; RESP 18; TEMP 36.8; O2SAT 98
[2019-10-20 20:30] VITALS: BP 116/65; PULSE 74; RESP 18; TEMP 36.7; O2SAT 100
[2019-10-20] MEDS: Pravastatin 40 MG Tablet PO (21:52)
--- NOTE | 2019-10-20 23:56 | NURSING ---
US Doppler result not available in [facility] or paper chart. Per dayshift NEY Oliver results negative. Radiology unable to verify results. Packaging Mechanic Eda contacted to find results from vascular lab.
[2019-10-21 03:15] VITALS: BP 105/58; PULSE 67; RESP 18; TEMP 36.7; O2SAT 99
[2019-10-21] MEDS: Pantoprazole Sodium 40 MG Tablet PO ×2 (05:46→09:04)
[2019-10-21] MEDS: Enoxaparin 40 MG/0.4 ML Syringe SC (05:47)
[2019-10-21] MEDS: Cefazolin 1 GM/50 ML BAG IV (05:47)
[2019-10-21] MEDS: HYDROcodone Bitartrate/Apap 5/325 Tablet PO ×2 (05:47→13:41)
[2019-10-21] MEDS: HYDROmorphone 1 MG/ML Syringe IV ×2 (09:01→15:29)
[2019-10-21] MEDS: 0.9% Normal Saline 1,000 ML 150 ML IV (09:01)
[2019-10-21] MEDS: 0.9% Saline Lock 10 ML Syringe IV ×2 (09:01→15:29)
[2019-10-21] MEDS: hydroCHLOROthiazide 12.5mg 12.5 MG PO (09:04)
[2019-10-21] MEDS: Lisinopril 10 MG Tablet PO (09:04)
[2019-10-21 09:06] VITALS: BP 133/63; PULSE 80; RESP 18; TEMP 36.7; O2SAT 98
--- NOTE | 2019-10-21 11:46 | PN_ITS ---
Patient Problems: Active and Suspected Problems Ankle fracture (Acute) Reason for Visit: ankle fracture Subjective: No further chest pain. Still with ankle pain, but overall improved. Vitals/I&O's: Vital Signs Temp Pulse Resp BP Pulse Ox 36.7 C 80 18 133/63 H 98 10/21/19 09:06 10/21/19 09:06 10/21/19 09:06 10/21/19 09:06 10/21/19 09:06 Oxygen Flow Rate (L/min) 2 Oxygen Delivery Method Room Air Weight: 108.3 kg Body Mass Index (BMI) 34.2 Intake and Output for Last 24 Hours 10/19/19 10/20/19 10/21/19 23:59 23:59 23:59 Intake Total 5082.5 / 5082.5 4355.0 / 4355.0 1050.0 / 1050.0 Output Total 2625 / 2625 2800 / 2800 850 / 850 Balance 2457.5 / 2457.5 1555.0 / 1555.0 200.0 / 200.0 General: Alert, No apparent distress HEENT: Atraumatic, Normocephalic Oral: Moist Mucosa, No Gingival or Mucosal Lesions/ Ulcerations Neck: No Nodes, Thyroid Normal Size and Texture Lungs: Clear to auscultation, Normal air movement, No rhonchi, No wheeze, No rales Cardiovascular: Regular rate, Regular Rhythm, Normal S1, Normal S2, No murmurs Abdomen: Bowel Sounds Present, Soft, Non Tender, Non-Distended, No Hepato- splenomegaly Extremities: No edema, No Calf Tenderness Skin: No rashes, No breakdown Psych/Mental Status: Normal Affect, Appropriate Current Medications Hydrocodone Bitart/Acetaminophen ([place] 5mg-325mg) 1 - 2 tablet PO Q6H PRN PRN PRN Reason: Pain Score 1-10/10 Last Admin: 10/21/19 05:47 Dose: 2 tablet Documented by: Docusate Sodium (Colace) 100 mg PO BID PRN PRN PRN Reason: Constipation Last Admin: 10/20/19 09:25 Dose: 100 mg Documented by: Enoxaparin Sodium (Lovenox) 40 mg SC DAILY@0600 [facility] Last Admin: 10/21/19 05:47 Dose: 40 mg Documented by: Ergocalciferol (Vitamin D) 50,000 unit PO Q7D [facility] Last Admin: 10/20/19 13:39 Dose: 50,000 unit Documented by: Hydrochlorothiazide () 12.5 mg PO DAILY [facility] Last Admin: 10/21/19 09:04 Dose: 12.5 mg Documented by: Hydromorphone HCl (Dilaudid Inj) 1 mg IV Q4H PRN PRN PRN Reason: Pain Score 6-10/10 Last Admin: 10/21/19 09:01 Dose: 1 mg Documented by: Sodium Chloride () 1,000 mls @ 150 mls/hr IV .Q6H40M [facility] Last Admin: 10/21/19 09:01 Dose: 150 mls/hr Documented by: Sodium Chloride () 250 mls @ 15 mls/hr IV .[id number] PRN PRN Reason: Saline Flush Sodium Chloride () 250 mls @ 15 mls/hr IV .[id number] PRN PRN Reason: Additional IVPB Infusion Lisinopril (Zestril) 10 mg PO DAILY [facility] Last Admin: 10/21/19 09:04 Dose: 10 mg Documented by: Ondansetron HCl (Zofran) 4 mg IV Q8H PRN PRN PRN Reason: NAUSEA Pantoprazole Sodium (Protonix) 40 mg PO DAILY [facility] Last Admin: 10/21/19 09:04 Dose: 40 mg Documented by: Pravastatin Sodium (Pravachol) 40 mg PO QHS [facility] Last Admin: 10/20/19 21:52 Dose: 40 mg Documented by: Sodium Chloride () 10 - 40 ml IV UD PRN PRN Reason: SALINE FLUSH Last Admin: 10/21/19 09:01 Dose: 10 ml Documented by: STROKE Vital Signs/Narrative: Vital Signs Temp Pulse Resp BP Pulse Ox 10/21/19 09:06 36.7 C 80 18 133/63 H 98 Medical Necessity - Tobacco Use Smoking Status: Former smoker Assessment/Plan All Active Problems Chest pain (Acute) Vertigo (Acute) Tingling of left upper extremity (Acute) Ankle fracture (Acute) 1. right trimallleolar fracture: * ORIF * non-weight bearing * COVID-19 negative * check 25 OH D level. 2. HTN * stable * continue lisinopril, HCTZ 3. chest pain: * improved * atypical * has been worked up in past and has been negative * DW nursing, will change AM meds to earlier than 1000, so that he can get his home meds. He said he is a reflux medication, but he does not know what it is. Will start pantoprazole. 4. VTE prophylaxis: SCDs. Add chemical prophylaxis after surgery. Would treat while non-weight bearing. 5. constipation: * no BM since 10/16, despite docusate * add bisacodyl Inpatient E&M: 30919 Subs Hosp L2
--- NOTE | 2019-10-21 13:11 | PN_ITS ---
Patient Problems: Active and Suspected Problems Ankle fracture (Acute) Subjective: Patient seen today for follow up on right ankle. He relates some pain, but he does stateit is feeling pretty good. He is resting comfortably in chair. No new complaints. - Physical Exam Vitals/I&O's: Vital Signs Temp Pulse Resp BP Pulse Ox 98.1 F 80 18 133/63 H 98 10/21/19 09:06 10/21/19 09:06 10/21/19 09:06 10/21/19 09:06 10/21/19 09:06 Oxygen Flow Rate (L/min) 2 Oxygen Delivery Method Room Air Weight: 108.3 kg Body Mass Index (BMI) 34.2 Intake and Output for Last 24 Hours 10/19/19 10/20/19 10/21/19 23:59 23:59 23:59 Intake Total 5082.5 / 5082.5 4355.0 / 4355.0 1050.0 / 1050.0 Output Total 2625 / 2625 2800 / 2800 850 / 850 Balance 2457.5 / 2457.5 1555.0 / 1555.0 200.0 / 200.0 General: Alert, Oriented x3, Cooperative, No apparent distress Extremities: Capillary Refill Less than 3 Seconds, - - CFT < 2 seconds to all toes right foot with dressing/splint clean, dry and intact; patient able to dorsiflex and plantarflex toes with no complaints of pain, less calf pain, no evidence of cellulitis or infection at this time. Current Medications Hydrocodone Bitart/Acetaminophen ([place] 5mg-325mg) 1 - 2 tablet PO Q6H PRN PRN PRN Reason: Pain Score 1-10/10 Last Admin: 10/21/19 05:47 Dose: 2 tablet Documented by: Bisacodyl (Dulcolax) 5 mg PO DAILY [facility] Docusate Sodium (Colace) 100 mg PO BID PRN PRN PRN Reason: Constipation Last Admin: 10/20/19 09:25 Dose: 100 mg Documented by: Enoxaparin Sodium (Lovenox) 40 mg SC DAILY@0600 [facility] Last Admin: 10/21/19 05:47 Dose: 40 mg Documented by: Ergocalciferol (Vitamin D) 50,000 unit PO Q7D [facility] Last Admin: 10/20/19 13:39 Dose: 50,000 unit Documented by: Hydrochlorothiazide () 12.5 mg PO DAILY [facility] Last Admin: 10/21/19 09:04 Dose: 12.5 mg Documented by: Hydromorphone HCl (Dilaudid Inj) 1 mg IV Q4H PRN PRN PRN Reason: Pain Score 6-10/10 Last Admin: 10/21/19 09:01 Dose: 1 mg Documented by: Sodium Chloride () 1,000 mls @ 150 mls/hr IV .Q6H40M [facility] Last Admin: 10/21/19 09:01 Dose: 150 mls/hr Documented by: Sodium Chloride () 250 mls @ 15 mls/hr IV .[id number] PRN PRN Reason: Saline Flush Sodium Chloride () 250 mls @ 15 mls/hr IV .[id number] PRN PRN Reason: Additional IVPB Infusion Lisinopril (Zestril) 10 mg PO DAILY [facility] Last Admin: 10/21/19 09:04 Dose: 10 mg Documented by: Ondansetron HCl (Zofran) 4 mg IV Q8H PRN PRN PRN Reason: NAUSEA Pantoprazole Sodium (Protonix) 40 mg PO DAILY [facility] Last Admin: 10/21/19 09:04 Dose: 40 mg Documented by: Pravastatin Sodium (Pravachol) 40 mg PO QHS [facility] Last Admin: 10/20/19 21:52 Dose: 40 mg Documented by: Sodium Chloride () 10 - 40 ml IV UD PRN PRN Reason: SALINE FLUSH Last Admin: 10/21/19 09:01 Dose: 10 ml Documented by: Medical Necessity - Tobacco Use Smoking Status: Former smoker Assessment/Plan All Active Problems Chest pain (Acute) Vertigo (Acute) Tingling of left upper extremity (Acute) Ankle fracture (Acute) Right trimalleolus ankle fracture s/p ORIF on 10/19/2019 Comorbities Dressing clean, dry and intact. No suspicion for infection. No weightbearing right foot, keep right foot elevated at all times. Pain management: Percocet for discharge. Antibiotic Prophylaxis: course of cefazolin 1g IV q 8 hours - completed. DVT Prophylaxis: SCD left, Lovenox 40mg subcutaneous once daily. Patient had venous doppler yesterday and I was advised it was negative for DVT. Other comorbidities: Medicine team assistance greatly appreciated. D/C Planning: Ok to d/c, planning for today.
--- NOTE | 2019-10-21 13:36 | PCM.TXEXTCAR ---
- Diet 10/19/19 17:35 Diet: Regular Diet Is pt able to select menu?: Yes - Wound(s) rt ankle Wound Type: Surgical Incision Dressing Change: Keep splint/dressing clean, dry and intact - Therapies Weight Bearing: Non weight bearing - No weightbearing right foot Extremity Affected:: Right Lower - Keep right foot elevated for at least 50 minutes of every hour with heel offloaded - Allergies/Procedures Done in Hospital Allergies/Adverse Reactions: Allergies No Known Allergies Allergy (Verified 02/14/18 16:14) - Type of Care/Length of Stay Estimated LOS: More Than 30 Days Type of Care Needed: Skilled Rehab Potential: Good Prognosis: Good - Additional Orders/Day of Discharge Day of Discharge: 10/21/19 - Follow Up Care Primary Care Physician: Bettina Tamayo MD [Primary Care Provider] - Please Follow Up With: Jasiel Pitt DPM - Call office to make appt: [phone] When: next week, sooner if needed
[2019-10-21 13:48] VITALS: BP 159/73; PULSE 81; RESP 18; TEMP 36.9; O2SAT 99
--- NOTE | 2019-10-21 13:56 | DCINST_ITS ---
Discharge Activity: May Not Drive, Use Walker Weight Bearing Status: No weight bearing - No weightbearing right foot Keep extremity elevated above heart level: Right Leg - Keep right foot elevated for at least 50 minutes of every hour with heel offloaded Call your doctor if your incision/area has: Continuous Slow Oozing, Sudden Increased Bleeding, Increased Redness, Foul Smelling Discharge Call your doctor if you observe: Fever of 101 or Higher, Shortness of breath, Chest pain, Calf discomfort, Uncontrolled pain Cleanse incision/area with: Do not get Incision Wet, Keep Dressing Clean & Dry Allergies/Adverse Reactions: Allergies No Known Allergies Allergy (Verified 02/14/18 16:14) Medications to take at Discharge Lisinopril/Hydrochlorothiazide [Zestoretic 02/04.5 Tablet] 1 tablet PO DAILY 02/14/18 Pravastatin Sodium 40 mg PO QHS 02/14/18 Enoxaparin Sodium [Lovenox] 40 mg SQ DAILY 30 Days #30 ml 10/21/19 Ergocalciferol [Vitamin D] 50,000 unit PO Q7D #7 cap 10/21/19 Oxycodone HCl/Acetaminophen [Percocet 5-325 mg Tablet] 1 - 2 ea PO Q4H PRN PRN 5 Days #30 tab 10/21/19 Pantoprazole Sodium [Protonix] 40 mg PO DAILY tab 10/21/19 The following prescriptions were given: Enoxaparin Sodium [Lovenox] 40 mg SQ DAILY 30 Days #30 ml Prescription Printed Oxycodone HCl/Acetaminophen [Percocet 5-325 mg Tablet] 1 - 2 ea PO Q4H PRN PRN 5 Days #30 tab PRN Reason: Pain Score 1-1010 Prescription Printed Primary Care Physician: Bettina Tamayo MD [Primary Care Provider] - Test Results: Test results from this visit will be discussed in further detail at your follow- up appointment, if applicable. Please Follow Up With: Jasiel Pitt DPM - Call office to make appt: [phone] When: next week, sooner if needed
--- NOTE | 2019-10-21 14:27 | PCM.DC.SUM ---
Discharge Date and Diagnosis - Problem List Patient Problems: Active and Suspected Problems Ankle fracture (Acute) Date of Admission: 10/18/19 Date of Discharge: 10/21/19 - Primary Discharge Diagnosis Acute Problems: Active Problems Ankle fracture (Acute) - Secondary Discharge Diagnosis Chronic Problems: Chronic Problems Hypertension (Chronic) High cholesterol (Chronic) GERD (gastroesophageal reflux disease) (Chronic) Depression (Chronic) Hospital Course and Treatment Operations: None, - - ORIF right ankle Summary of Care Provided: The patient is a 59 year old sustained right ankle fracture on 10/18/2019, went to ER, was reduced and was discharged home, he had severe pain and unable to care for himself, he has no one to help him. He presented back to ER and he was admitted for pain control and surgery. Patient had surgery ORIF right ankle fracture on 10/19/2019 without complication. Patient had venous doppler on 10/20/2019 due to calf pain which was negative for DVT. Patient was also followed by the hospitalist service for other comorbidities. Overall hospital stay uneventful. Patient is ready to be discharged to nursing facility. Right trimalleolus ankle fracture s/p ORIF on 10/19/2019 Comorbities Dressing clean, dry and intact. No suspicion for infection at this time. No weightbearing right foot, keep right foot elevated at all times. Pain management: Percocet for discharge. Antibiotic Prophylaxis: course of cefazolin 1g IV q 8 hours - has been completed. DVT Prophylaxis: Lovenox 40mg subcutaneous once daily. Patient had venous doppler yesterday and wet read report negative for DVT. Other comorbidities: Medicine team assistance greatly appreciated. Patient Problems: Active and Suspected Problems Ankle fracture (Acute) - Physical Exam Vitals/I&O's: Vital Signs Temp Pulse Resp BP Pulse Ox 98.4 F 81 18 159/73 H 99 10/21/19 13:48 10/21/19 13:48 10/21/19 13:48 10/21/19 13:48 10/21/19 13:48 Oxygen Flow Rate (L/min) 2 Oxygen Delivery Method Room Air Weight: 108.3 kg Body Mass Index (BMI) 34.2 Intake and Output for Last 24 Hours 10/19/19 10/20/19 10/21/19 23:59 23:59 23:59 Intake Total 5082.5 / 5082.5 4355.0 / 4355.0 2755.0 / 2755.0 Output Total 2625 / 2625 2800 / 2800 1150 / 1150 Balance 2457.5 / 2457.5 1555.0 / 1555.0 1605.0 / 1605.0 Psych/Mental Status: Appropriate, Alert and oriented to time, place, person, mood and affect Current Medications Hydrocodone Bitart/Acetaminophen ([place] 5mg-325mg) 1 - 2 tablet PO Q6H PRN PRN PRN Reason: Pain Score 1-10/10 Last Admin: 10/21/19 13:41 Dose: 2 tablet Documented by: Bisacodyl (Dulcolax) 5 mg PO DAILY [facility] Docusate Sodium (Colace) 100 mg PO BID PRN PRN PRN Reason: Constipation Last Admin: 10/20/19 09:25 Dose: 100 mg Documented by: Enoxaparin Sodium (Lovenox) 40 mg SC DAILY@0600 [facility] Last Admin: 10/21/19 05:47 Dose: 40 mg Documented by: Ergocalciferol (Vitamin D) 50,000 unit PO Q7D [facility] Last Admin: 10/20/19 13:39 Dose: 50,000 unit Documented by: Hydrochlorothiazide () 12.5 mg PO DAILY [facility] Last Admin: 10/21/19 09:04 Dose: 12.5 mg Documented by: Hydromorphone HCl (Dilaudid Inj) 1 mg IV Q4H PRN PRN PRN Reason: Pain Score 6-10/10 Last Admin: 10/21/19 09:01 Dose: 1 mg Documented by: Sodium Chloride () 1,000 mls @ 150 mls/hr IV .Q6H40M [facility] Last Infusion: 10/21/19 13:43 Dose: 0 mls/hr Documented by: Sodium Chloride () 250 mls @ 15 mls/hr IV .[id number] PRN PRN Reason: Saline Flush Sodium Chloride () 250 mls @ 15 mls/hr IV .[id number] PRN PRN Reason: Additional IVPB Infusion Lisinopril (Zestril) 10 mg PO DAILY [facility] Last Admin: 10/21/19 09:04 Dose: 10 mg Documented by: Ondansetron HCl (Zofran) 4 mg IV Q8H PRN PRN PRN Reason: NAUSEA Pantoprazole Sodium (Protonix) 40 mg PO DAILY [facility] Last Admin: 10/21/19 09:04 Dose: 40 mg Documented by: Pravastatin Sodium (Pravachol) 40 mg PO QHS [facility] Last Admin: 10/20/19 21:52 Dose: 40 mg Documented by: Sodium Chloride () 10 - 40 ml IV UD PRN PRN Reason: SALINE FLUSH Last Admin: 10/21/19 09:01 Dose: 10 ml Documented by: Discharge Activity: May Not Drive, Use Walker Weight Bearing Status: No weight bearing - No weightbearing right foot Keep extremity elevated above heart level: Right Leg - Keep right foot elevated for at least 50 minutes of every hour with heel offloaded Call your doctor if your incision/area has: Continuous Slow Oozing, Sudden Increased Bleeding, Increased Redness, Foul Smelling Discharge Call your doctor if you observe: Fever of 101 or Higher, Shortness of breath, Chest pain, Calf discomfort, Uncontrolled pain Cleanse incision/area with: Do not get Incision Wet, Keep Dressing Clean & Dry Home Medications: Medications to take at Discharge Lisinopril/Hydrochlorothiazide [Zestoretic 02/04.5 Tablet] 1 tablet PO DAILY 02/14/18 Pravastatin Sodium 40 mg PO QHS 02/14/18 Enoxaparin Sodium [Lovenox] 40 mg SQ DAILY 30 Days #30 ml 10/21/19 Ergocalciferol [Vitamin D] 50,000 unit PO Q7D #7 cap 10/21/19 Oxycodone HCl/Acetaminophen [Percocet 5-325 mg Tablet] 1 - 2 ea PO Q4H PRN PRN 5 Days #30 tab 10/21/19 Pantoprazole Sodium [Protonix] 40 mg PO DAILY tab 10/21/19 Following Prescrptions Were Given to Patient: Enoxaparin Sodium [Lovenox] 40 mg SQ DAILY 30 Days #30 ml Prescription Printed Oxycodone HCl/Acetaminophen [Percocet 5-325 mg Tablet] 1 - 2 ea PO Q4H PRN PRN 5 Days #30 tab PRN Reason: Pain Score 1-10/10 Prescription Printed Primary Care Physician: Bettina Tamayo MD [Primary Care Provider] - Please Follow Up With: Jasiel Pitt DPM - Call office to make appt: [phone] When: next week, sooner if needed Medical Necessity - Tobacco Use Smoking Status: Former smoker Meaningful Use Info Meaningful Use Diagnoses (Choose all that apply): None applicable
== END 2019-10-21 15:30 | disposition skilled nursing facility (03) | DRG 313 ==
LOC: ED 17:28 → MS3 17:35
PROVIDERS: Internal Medicine; Admitting Provider Podiatrist; Emergency Provider Emergency Medicine; PCP Internal Medicine
PROC: 0QSJ04Z Reposition Right Fibula with Internal Fixation Device, Open Approach (ICD-10-PCS; principal; 2019-10-19 13:40)
DX: S82.851A Displaced trimalleolar fracture of right lower leg, initial encounter for closed fracture (principal); X50.1XXA Overexertion from prolonged static or awkward postures, initial encounter; I10 Essential (primary) hypertension; E78.00 Pure hypercholesterolemia, unspecified; K21.9 Gastro-esophageal reflux disease without esophagitis; F32.9 Major depressive disorder, single episode, unspecified; K59.00 Constipation, unspecified; G47.33 Obstructive sleep apnea (adult) (pediatric); E87.6 Hypokalemia; E55.9 Vitamin D deficiency, unspecified; M79.661 Pain in right lower leg; R07.89 Other chest pain; E66.9 Obesity, unspecified; Z68.34 Body mass index [BMI] 34.0-34.9, adult; Z79.82 Long term (current) use of aspirin; Z79.899 Other long term (current) drug therapy; Z87.891 Personal history of nicotine dependence
CPT/HCPCS: 36415; 73600; 73610; 73700; 76000; 76377; 80048; 80076; 82306; 83036; 85025; 85610; 85730; 87635; 93005; 93971; 96374; 97110; 97162; 97166; 97530; 99152; 99251; 99285; C1713; G2023; J7030; A4216; G0463; J2405; U0003

== ENCOUNTER → 2019-12-29 08:56 | Outpatient (CLI) | payer MEDICAID, SELFPAY ==
[2019-10-19 08:40] VITALS: BMI 34.2
--- NOTE | 2019-12-29 09:18 | VDLE_ITS ---
Reason For Study: Swelling RIGHT LEFT GSV is normal. CFV is compressible, spontaneous, phasic, CFV is compressible, spontaneous, phasic, competent, and demonstrates normal competent and demonstrates normal augmentation. augmentation. FV is compressible, spontaneous, phasic, competent and demonstrates normal augmentation. POP V is compressible, spontaneous, phasic, competent and demonstrates normal augmentation. T/P Trunk is compressible. PTV is compressible. Acute deep vein thrombosis is noted in the right peroneal vein. Procedure Exam performed in department. A preliminary report was called and/or faxed to [facility]. Pt sent to ED for treatment. Interpretation Summary Acute deep vein thrombosis is noted in the right peroneal vein. The remainder of the right lower extremity deep venous system is patent and compressible. Valvular competence appears intact within the proximal deep venous system on the right . The right great saphenous vein appears patent and compressible segmentally. Ordering Physician: Jasiel Pitt Referring Physician: Bettina Tamayo Performed By: Cyn Mckeon RVT and Student
== END ==
PROVIDERS: PCP Internal Medicine; Referring Provider Podiatrist; Visit Provider Podiatrist
DX: M79.89 Other specified soft tissue disorders (principal)
CPT/HCPCS: 93971

== ENCOUNTER 2019-12-29 09:51 | Emergency (ER) | payer MEDICAID, SELFPAY ==
[2019-10-19 08:40] VITALS: BMI 34.2
[2019-12-29 09:52] VITALS: BP 120/72; PULSE 63; RESP 17; TEMP 36.7; O2SAT 99; BMI 34.8
--- NOTE | 2019-12-29 10:33 | ED.DCSUM_ITS ---
- ER Visit Summary Date of Service: 12/29/19 Chief Complaint: Right leg pain History of Present Illness: The patient is a 59 M who presents with right lower extremity pain that is been constant. Patient saw his health and safety advisor who ordered an outpatient venous duplex of his right lower extremity. The venous duplex was positive for DVT in the right peroneal vein. Patient was then referred to the emergency department. Patient states he has been wearing a brace on his right lower leg after ankle surgery. Patient denies any fevers or chills. Patient denies any chest pain or shortness of breath. Patient denies any nausea or vomiting. Physical Examination: Vital signs are stable. Patient is afebrile. Patient is in no acute distress. Heart was regular rate and rhythm. Lungs are clear and equal bilaterally. Abdomen is soft and nontender. Cranial nerves II through XII are intact. There are no focal motor or sensory deficits noted. There is some mild tenderness of the right lower leg. There is some mild edema. There is no ecchymosis. There is a good pedal pulse noted. Capillary refill was less than 2 seconds in all digits. Test Results: Outpatient venous duplex results were reviewed. Patient has a DVT in the right peroneal vein. Emergency Department Course and Treatment: Patient was given a dose of Eliquis here. Patient was given a prescription for Eliquis. Patient was instructed to keep the right leg elevated. Patient was instructed to follow-up with his primary care physician and health and safety advisor in 5 to 7 days. Patient understood and was agreeable with the plan. All questions were answered. Disposition: Discharge home Impression: DVT peroneal vein right lower extremity This note was generated with [employer] dictation software. It may contain incorrect words, spelling, and punctuation that were not noted in review of the chart prior to signing ED Disposition - Plan for ED Patient: Disposition: Home or Assisted Living Diagnosis: Deep vein thrombosis (DVT) of distal vein of right lower extremity Instructions: ED DVT Prescriptions: Apixaban [Eliquis] 5 mg PO BID #74 tab Transmission Status: Pending to [facility] - [place] - [id number] Referrals: Bettina Tamayo MD [Primary Care Provider] - 5-7 Days Jasiel Pitt DPM [STAFF PHYSICIAN] - 5-7 Days
[2019-12-29] MEDS: APIXABAN 5 MG TABLET 10 MG PO (10:40)
[2019-12-29 10:53] VITALS: BP 120/72; PULSE 63; RESP 18
== END 2019-12-29 10:55 | disposition home or self-care (01) ==
LOC: ED 10:46
PROVIDERS: Emergency Provider Emergency Medicine; PCP Internal Medicine
DX: I82.451 Acute embolism and thrombosis of right peroneal vein (principal); I10 Essential (primary) hypertension; K21.9 Gastro-esophageal reflux disease without esophagitis
CPT/HCPCS: 93971; 99283

== ENCOUNTER 2019-12-31 11:58 | Emergency (ER) | payer MEDICAID, SELFPAY ==
[2019-12-31 11:59] VITALS: BP 151/81; PULSE 81; RESP 16; TEMP 36.7; O2SAT 98; BMI 35.2
--- NOTE | 2019-12-31 12:17 | CT_ITS ---
STUDY: CTA CHEST REASON FOR EXAM: Male, 59 years old. CHEST PAIN RADIATING INTO LEFT SHOULDER--STARTED THIS AM -- KNOWN DVT IN RLE RADIATION DOSAGE (If Supplied By Facility): CTDIvol = ( 13.74 ) mGy, DLP = ( 560.70 ) mGycm TECHNIQUE: The examination was performed with the intravenous administration of IV 100mL Isovue-370. Post-processing of the angiographic images was performed, with multiplanar reformation and 3D reconstruction. Individualized dose optimization techniques were used for this CT. COMPARISON: None. FINDINGS: Normal enhancement of the main pulmonary artery and right and left pulmonary arteries. Normal enhancement of the bilateral peripheral pulmonary arteries. There is no demonstrated pulmonary embolism. Normal thoracic aorta and visualized great vessels. There is no demonstrated aortic dissection. There is cardiomegaly with left ventricular enlargement. There are calcifications of the coronary arteries. Normal mediastinum. Normal hilar regions. Normal visualized trachea and bronchi. The lungs are well expanded. Normal pulmonary parenchyma. Normal pleura. Normal chest wall structures. There are degenerative changes of thoracic spine. Normal visualized upper abdomen. CT/CTA Chest W/WO Contrast IMPRESSION: No central or segmental pulmonary embolism. Electronically Signed: Frankie Plasencia MD (Brooks) at 13:10 EDT , Service support ,
--- NOTE | 2019-12-31 12:17 | EKG12_ITS ---
Test Reason : CP Blood Pressure : / mmHG Vent. Rate : 074 BPM Atrial Rate : 074 BPM P-R Int : 168 ms QRS Dur : 102 ms QT Int : 384 ms P-R-T Axes : 023 010 043 degrees QTc Int : 426 ms Normal sinus rhythm Incomplete right bundle branch block Possible Inferior infarct (cited on or before 16-MAR-2013) Abnormal ECG Confirmed by SEDRICK TYLER, FRANCESCA ([id number]), food expeditor FREDI NAVA ([id number]) on 01/03/2020 9:50:39 AM Referred By: HERI/FERN Confirmed By:FRANCESCA DUBOSE MD
[2019-12-31] MEDS: 0.9% Normal Saline 1,000 ML 1000 ML IV (12:22)
[2019-12-31 12:39] LABS: Absolute Lymphocyte Count 1.57 X10^3/uL (0.83-4.51); Absolute Neutrophil Count 4.6 X10^3/uL (2.0-7.7); Basophil# 0.02 X10^3/uL; Basophil% 0.3 % (0-1); Eosinophils% 4.2 % (0-5); Hematocrit 44.7 % (40-54); Hemoglobin 14.5 g/dL (13.0-16.5); Lymphocyte # 1.57 X10^3/ul (4.0); Lymphocyte % 22.2 % (19-41); Mean Corp Hgb Conc 32.4 g/dL (32-36); Mean Corpuscular Hgb 28.7 pg (27.0-32.0); Mean Corpuscular Volume 88.5 fL (80-94); Mean Platelet Vol. 11.8 fl (6.2-12.0); Monocyte# 0.56 X10^3/uL; Monocyte% 7.9 % (0-10); NRBC Flagged by Analyzer 0 % (0-5); Platelet Count 226 K/mm3 (150-450); RBC Distribution Width CV 13.3 % (11.6-14.6); RBC Distribution Width SD 43.3 fl (35.1-43.9); Red Blood Count 5.05 M/mm3 (4.6-6.2); White Blood Count 7.1 K/mm3 (4.4-11.0)
[2019-12-31 12:52] LABS: Anion Gap 6 (5-15); BUN 16 mg/dL (7-18); BUN/Creat Ratio 17.1 RATIO (10-20); Calcium,Total 8.9 mg/dL (8.5-10.1); Chloride 108 mmol/L (98-107); Creatinine, Serum 0.93 mg/dL (0.70-1.30); EST Glomerular Filtration Rate 87 mL/min (>60); Est Glom Filt Rate - Afr Amer 106 mL/min (>60); Estimated Creatinine Clearance 86.13 ml/min; Glucose 107 mg/dL (74-106); Sodium Level 139 mmol/L (136-145)
[2019-12-31 12:58] VITALS: BP 115/82; PULSE 67; RESP 19; O2SAT 100
[2019-12-31 13:11] VITALS: BP 115/69; PULSE 60; RESP 16; O2SAT 98
--- NOTE | 2019-12-31 13:27 | ED.DCSUM_ITS ---
- ER Visit Summary Date of Service: 12/31/19 Chief Complaint: Chest pain History of Present Illness: The patient is a 59 M who presents with chest pain that began this morning when he woke up. Patient states pain is over the left upper chest. Patient describes the pain as aching. Patient states nothing m akes it better or worse. Patient denies any nausea or vomiting. Patient denies any diaphoresis. Patient denies any shortness of breath. Patient states he did have an episode where he felt lightheaded. Patient also has a history of gastroesophageal reflux disease. Patient was recently diagnosed with a DVT in his right leg. Patient called the on-call nurse for his insurance and was told to come to the emergency department due to the recent DVT diagnosis. Physical Examination: Vital signs are stable. Patient is afebrile. Patient is in no acute distress. Oral mucosa is pink and moist. Neck is supple. Trachea is midline. There is no JVD noted. Heart was regular rate and rhythm. Lungs are clear and equal bilaterally. Abdomen is soft. Bowel sounds are normal. There is no tenderness. There is no rebound or guarding noted. Skin is warm dry. Cranial nerves II through XII are intact. There are no focal motor or sensory deficits noted. Extremities are intact. There is no calf tenderness or edema. Test Results: EKG showed normal sinus rhythm with a rate of 74. There are no acute ST or T wave changes. This is unchanged compared to previous EKG dated 10/19/2019. CBC and basic metabolic profile were obtained and were essentially within normal limits. Troponin was less than 0.015. CTA of the chest was obtained. There is no evidence of pulmonary embolism. There is no acute cardiopulmonary process noted. This was interpreted by the radiologist and reviewed by myself. Emergency Department Course and Treatment: Patient was given aspirin by EMS. Patient was feeling better on reevaluation. Patient has a HEART score of 3. Patient was advised that this is low risk for acute cardiac event. Patient was instructed to follow-up with his primary care physician in 5 to 7 days. Patient understood and was agreeable with the plan. All questions were answered. Disposition: Discharge home Impression: Chest pain This note was generated with [employer] dictation software. It may contain incorrect words, spelling, and punctuation that were not noted in review of the chart prior to signing ED Disposition - Plan for ED Patient: Disposition: Home or Assisted Living Diagnosis: Chest pain of uncertain etiology Instructions: ED Chest Pain Atypical Unkn Cause Referrals: Bettina Tamayo MD [Primary Care Provider] - 5-7 Days
--- NOTE | 2019-12-31 15:03 | NURSING ---
CALLED PHYSICANS. ETA IS 75 MIN. TO BE BILLED WHEELCHAIR
== END 2019-12-31 16:37 | disposition home or self-care (01) ==
PROVIDERS: Emergency Provider Emergency Medicine; PCP Internal Medicine
DX: R07.9 Chest pain, unspecified (principal); I10 Essential (primary) hypertension; K21.9 Gastro-esophageal reflux disease without esophagitis; Z86.718 Personal history of other venous thrombosis and embolism; Z79.01 Long term (current) use of anticoagulants; Z79.899 Other long term (current) drug therapy
CPT/HCPCS: 71275; 80048; 84484; 85025; 93005; 96360; 99285; J7030; Q9967; A4216

== ENCOUNTER → 2020-05-28 14:29 | Outpatient (CLI) | payer MEDICAID, SELFPAY ==
--- NOTE | 2020-05-28 14:32 | VDLE_ITS ---
Reason For Study: pain and swelling RIGHT GSV is normal. CFV is compressible, spontaneous, phasic, competent and demonstrates normal augmentation. FV is compressible, spontaneous, phasic, competent and demonstrates normal augmentation. POP V is compressible, spontaneous, phasic, competent and demonstrates normal augmentation. T/P Trunk is compressible. PTV is compressible. RT PerV is compressible. Procedure This is a venous duplex using B-mode, color flow and spectral Doppler. Exam performed in department. The exam was abbreviated due to the COVID 19 protocol. The exam was diagnostic. A preliminary report was called and/or faxed to Dr. Pitt. Interpretation Summary Deep veins of the right lower extremity are patent and compressible segmentally. There is no evidence of right lower extremity deep vein thrombosis. Valvular competence appears intact within the proximal deep venous system on the right . The right great saphenous vein appears patent and compressible segmentally. Ordering Physician: Jasiel Pitt Performed By: Ramón Mcknight RVRyan
== END ==
PROVIDERS: PCP Internal Medicine; Referring Provider Podiatrist; Visit Provider Podiatrist
DX: M79.661 Pain in right lower leg (principal); R60.0 Localized edema
CPT/HCPCS: 93971

== ENCOUNTER → 2020-07-01 12:32 | Outpatient (CLI) | payer MEDICAID, SELFPAY ==
--- NOTE | 2020-07-01 12:35 | VDLE_ITS ---
Reason For Study: venous insufficiency RIGHT LEFT CFV is compressible, spontaneous, phasic, CFV is compressible, spontaneous, phasic, competent and demonstrates normal competent, and demonstrates normal augmentation. augmentation. FV is compressible, spontaneous, phasic, FV is compressible, spontaneous, phasic, competent and demonstrates normal competent and demonstrates normal augmentation. augmentation. POP V is compressible, spontaneous, phasic, POP V is compressible, spontaneous, phasic, competent and demonstrates normal competent and demonstrates normal augmentation. augmentation. T/P Trunk is compressible. T/P Trunk is compressible. PTV is compressible. PTV is compressible. RT PerV is compressible. LT PerV is compressible. SFJ is competent and measures 1.02 x 0.89 cm. SFJ is competent and measures 1.08 x 0.87 cm. GSV proximal thigh measures 0.75 x 0.66 cm. GSV proximal thigh measures 0.66 x 0.58 cm. GSV at knee measures 0.66 x 0.72 cm. GSV at knee measures 0.60 x 0.63 cm. GSV is competent throughout. GSV is competent throughout. GSV demonstrates rouleax flow. SSV proximal calf is competent and measures SSV proximal calf is competent and measures 0.35 x 0.36 cm. 0.44 x 0.52 cm. Procedure Exam performed in department. The exam was diagnostic. Interpretation Summary Deep veins of the lower extremities are bilaterally patent and compressible segmentally. There is no evidence of deep vein thrombosis on either side. Valvular competence appears intact within the proximal deep venous systems bilaterally. The great saphenous veins appear bilaterally patent and compressible segmentally. Sapheno-femoral junctions are bilaterally competent . Valvular competence appears to be intact segmentally within the great saphenous veins bilaterally. Small saphenous veins are patent and competent bilaterally. Rouleaux flow is noted in the right great saphenous vein. Ordering Physician: Jasiel Pitt Referring Physician: Bettina Tamayo Performed By: Leonor Costa, MARKEL, RVT
--- NOTE | 2020-07-01 13:37 | CT_ITS ---
CT of the right ankle without contrast INDICATION: Pain and swelling after open reduction internal fixation of fracture. TECHNIQUE: Multiple thin section axial CT images of the right ankle were obtained without the administration of intravenous contrast and filmed in soft tissue and bone windows. Furthermore, multiple sagittal and coronal reconstructions were performed. Dose limiting techniques were utilized. COMPARISON: 10/18/2019. FINDINGS: No abnormal soft tissue mass, lymphadenopathy, fluid collection. Normal appearance to the musculature. Healed fracture the distal fibula proximal to the tibial plafond and with a lateral plate and screws. Portions of the fracture line are still visible posteriorly and anteriorly but there is bony bridging in the center of the fracture. There are also anchor devices along the lateral cortex of the fibula and the medial cortex of the tibia with a radiolucent tract and abundant calcification of the syndesmosis consistent with the fixation. There is also a healed fracture the medial malleolus the tibia with 2 screws with bony bridging. IMPRESSION: Healed fractures the medial malleolus and distal fibula after open reduction internal fixation Electronically Signed: Frankie Castillo MD at 10:17 EST Tel , Service support , CT/Extremity Lower without Contra
== END ==
PROVIDERS: PCP Internal Medicine; Referring Provider Podiatrist; Visit Provider Podiatrist
DX: I87.2 Venous insufficiency (chronic) (peripheral) (principal); S82.51XD Displaced fracture of medial malleolus of right tibia, subsequent encounter for closed fracture with routine healing; S82.831D Other fracture of upper and lower end of right fibula, subsequent encounter for closed fracture with routine healing; X58.XXXD Exposure to other specified factors, subsequent encounter
CPT/HCPCS: 73700; 93970

== ENCOUNTER → 2020-07-17 09:50 | Outpatient (CLI) | payer MEDICAID, SELFPAY ==
[2020-07-17 12:28] LABS: Absolute Lymphocyte Count 1.48 X10^3/uL (0.83-4.51); Absolute Neutrophil Count 5.9 X10^3/uL (2.0-7.7); Basophil# 0.05 X10^3/uL; Basophil% 0.6 % (0-1); Eosinophil# 0.16 X10^3/uL; Hematocrit 47.5 % (40-54); Hemoglobin 15.7 g/dL (13.0-16.5); Lymphocyte # 1.48 X10^3/ul (4.0); Mean Corp Hgb Conc 33.1 g/dL (32-36); Mean Corpuscular Hgb 29.3 pg (27.0-32.0); Mean Corpuscular Volume 88.6 fL (80-94); Mean Platelet Vol. 11.9 fl (6.2-12.0); Monocyte# 0.58 X10^3/uL; Monocyte% 7.1 % (0-10); NRBC Flagged by Analyzer 0 % (0-5); Neutrophil # 5.89 X10^3/uL (2.7-7.7); Neutrophil % 71.8 % (47-70); Platelet Count 208 K/mm3 (150-450); RBC Distribution Width CV 13.8 % (11.6-14.6); RBC Distribution Width SD 44.2 fl (35.1-43.9); Red Blood Count 5.36 M/mm3 (4.6-6.2); White Blood Count 8.2 K/mm3 (4.4-11.0)
[2020-07-17 12:35] LABS: ALB/GLOB Ratio 0.9 RATIO (0.9-2.4); AST(SGOT) 14 U/L (15-37); Alanine Aminotransfer ALT/SGPT 29 U/L (16-61); Albumin, Serum 3.7 g/dL (3.2-5.0); Alkaline Phosphatase 119 U/L (45-117); Anion Gap 5 (5-15); BUN 17 mg/dL (7-18); BUN/Creat Ratio 18.7 RATIO (10-20); Calcium,Total 9.6 mg/dL (8.5-10.1); Chloride 105 mmol/L (98-107); Creatinine, Serum 0.91 mg/dL (0.70-1.30); EST Glomerular Filtration Rate 90 mL/min (>60); Est Glom Filt Rate - Afr Amer 109 mL/min (>60); Globulin 4.1 g/dL (2.2-4.2); Glucose 107 mg/dL (74-106); Potassium 3.8 mmol/L (3.5-5.1); Protein, Total 7.8 g/dL (6.4-8.2); Sodium Level 136 mmol/L (136-145)
== END ==
PROVIDERS: Visit Provider Family Medicine
DX: Z01.812 Encounter for preprocedural laboratory examination (principal)
CPT/HCPCS: 36415; 80053; 85025

== ENCOUNTER 2020-08-05 09:02 | Observation (INO) | payer MEDICAID, SELFPAY ==
[2020-08-05] VITALS (11 sets, daily range): BP systolic 112–148; BP diastolic 62–92; PULSE 55–72; RESP 16–18; TEMP 36.1–37.3; O2SAT 93–97; BMI 37.5; BMI 36.6
[2020-08-05] MEDS: Lactated Ringers 1,000 ML 100 ML IV ×3 (06:41→17:16)
--- NOTE | 2020-08-05 07:30 | RAD_ITS ---
STUDY: X-RAY - RIGHT ANKLE REASON FOR EXAM: Male, 59 years old. PAIN TECHNIQUE: 2 view(s) of the ankle. COMPARISON: 10/19/2019 FINDINGS: 2:15 minutes of fluoroscopy of the right ankle was utilized and operating room during hardware removal and 5 images are somewhat limited for interpretation.. RAD/Ankle 2 Views IMPRESSION: Fluoroscopy during surgery. Electronically Signed: Frankie Castillo MD at 9:12 EDT Tel , Service support ,
--- NOTE | 2020-08-05 08:20 | LES_PTH ---
PATIENT: CHAKA VILLASENOR LOC: [facility]3 U#:[id number] AGE/SX: 59/M ROOM: VT323 RE08/05/[address]: ALON BrownM : 1960 BED: 1 DIS: 08/06/2020 SPEC #: [id number] RECD: 08/05/20 11:10 STATUS: VINCERyan FISHER #: [id number] DENNY: 08/05/20 08:[address]: Jasiel Pitt DEPT: SURGICAL PATHOLOGY RECD BY: Natasha Landers ENTERED: 08/05/20 13:07 SP TYPE: Lesion OTHR DR: No Primary Care Phys Tissues: Skin of ankle and foot Procedures: Special Stain Group I Surgery Specimen Level IV GMS Stain (control) HEADER OPERATION: Removal hardware right ankle PRE-OP DIAGNOSIS: Symptomatic hardware TISSUE SUBMITTED: Skin from ankle MICROSCOPIC DIAGNOSIS Skin from ankle, punch biopsy: Pieces of skin and underlying tissue with focal hyperkeratosis, fibrosis and mild dermal and perivascular chronic inflammation. KONRAD:david 08/06/2020 COMMENT Special stain for fungi is negative for organisms; matched control is appropriate. Case has been reviewed in consultation with Dr. Olivares who concurs with the above diagnosis. IDC:AM MICROSCOPIC DESCRIPTION Slides are reviewed. GROSS DESCRIPTION Received in fixative is one container labeled with the patient's name and designated skin from right ankle. The specimen consists of three punch biopsy of fuentes-white skin. Two pieces measure measuring 0.2 cm in diameter and 0.2 cm in length and the third piece measures 0.2 cm in diameter and 0.4 cm in length. The entire specimen is submitted in one cassette. / KONRAD:david 08/05/20 TC:3 CPT: 78086, 27895
[2020-08-05] MEDS: Cefazolin 2 GM in 0.9% Normal Saline 100 ML IV (09:19)
[2020-08-05] MEDS: Bupiv/Epi 0.25% 30 ML Vial (09:38)
--- NOTE | 2020-08-05 11:02 | PCM.OPRPT ---
Report of Operation Date of Procedure: 08/05/20 Pre-Operative Diagnosis: Symptomatic hardware right ankle. Dermatitis right ankle Post-Operative Diagnosis: Same Surgery/Procedure Performed:: Removal of hardware from the right ankle, and punch biopsy of skin right ankle marketing instructor: None Type of Anesthesia:: General, Local Special Medications: Biopsy of skin from right ankle sent to pathology Estimated Blood Loss (mL): 30mL Description of Procedure: Indications: This is a 59 year old with history of right ankle fracture s/p ORIF by June 2019. Patient has symptomatic hardware with on and off rash to the medial and lateral ankle over the hardware sites. The hardware is bothering him, and patient would like the hardware removed. He has elected to proceed forward with removal of the hardware. This was discussed with them in great detail, the procedure was reviewed with them as well as all of the possible benefits, risks, goals, expectations, typical/estimated healing time. He expressed understanding and agreement. The consent forms were reviewed with hime and he freely signed them. All of his questions were answered. No guarantees were given nor implied. Patient has received medial clearance. Operative Procedure: The patient was brought back to the operating room and was placed on the operating room table in the supine position. He was carefully secured to the operating room table with a safety belt around his waist. A time out was performed and the patient was properly identified and the surgical plan was confirmed. 2 grams of Cefazolin IV was given for antibiotic prophylaxis. A well padded pneumatic tourniquet was applied around the right thigh but was not inflated. The patient did receive general anesthesia per the anesthesiologist. The right foot/ankle/leg were scrubbed, prepped, draped in the usual aseptic fashion. A timeout was performed and the patient was properly identified and the surgical plan was confirmed. A total of 20mL of 0.25% Bupivacaine with epi was given as a block around the lateral and medial ankle. A linear longitudinal skin incision at site of previous incision was made overlying the lateral distal fibula overlying the plate and screws. Careful dissection was completed down through the subcutaneous tissue layer down the fibular plate. The plate and screws were identified and were removed, in toto. The tightrope was removed as well. Three small incisions were made over the medial ankle over the screws and suture button. Careful dissection was completed down through the subcutaneous tissue layer down the hardware of the medial ankle. The screws were identified and were removed, along with the suture button, in toto. Of note, all of the fracture sites were noted to be healed and there was no evidence of infection. There was no necrosis, no abscess, no purulence or any other evidence of infection at this time at any of the surgical sites/ankle. The ankle was checked for stability, the ankle was noted to be stable with no instability present to the medial or lateral aspects, and no instability to the tib fib syndesmosis. This was confirmed using intraoperative fluoroscopy. Images were saved. There was smooth gliding range of motion to the ankle. The dermatitis to the medial and lateral ankle was minimal and only a trace amount present to the medial ankle. This is because he has been using topical hydrocortisone cream, which he notes that if he stops using it the rash will come back in 2-3 day. A 3mm punch biopsy was obtained x 3 spots to the skin of the medial ankle at the site of the dermatitis. These were placed together in formulin solution and sent to pathology for further evaluation. The incision sites were flushed out with copious amounts of normal saline solution. The tissues all appeared healthy and viable at this time, the bone was hard, white, and healthy in appearance. Soft tissue was viable. The skin was reapproximated using 3-0 Nylon. No deep sutures were placed to help avoid allergic reaction given the dermatitis history. All vital structure, including all vital neurovascular structures were properly identified and protected as necessary throughout the procedure. There was normal vascular flow to the foot and ankle. CFT < 2 seconds to all toes, and had normal temperature gradient present.A dressing was applied which consisted of Betadine soaked adaptic, 4x4 gauze, kerlix and guillermina dressing. The patient tolerated the above operative procedure well at the anesthesia well with no complications. The patient was transported to the recovery room with vital signs stable and in good condition. Post operative orders were placed. Post operative instructions were reviewed with patient. The patient will be kept overnight for pain management and observation. Grafts/Implants Used: None - Complications None
--- NOTE | 2020-08-05 11:15 | RAD_ITS ---
STUDY: X-RAY - RIGHT ANKLE REASON FOR EXAM: Male, 59 years old. post op hardware removal TECHNIQUE: 3 view(s) of the ankle. COMPARISON: CT of the right ankle dated July 01, 2020 FINDINGS: Previously seen cortical plate-screw construct of the distal fibula and the medial malleolus screws have been removed. Previously seen syndesmotic radiopaque anchor has also been removed. Small amount of heterotopic bone at the superior aspect of the syndesmosis unchanged. Tract davila is seen in the osseous structures or hardware was most recently present. Small amounts of postoperative gas and swelling seen in the lower leg and ankle. Tiny chronic bony fragments at the periphery of the medial malleolus unchanged from the prior study. No demonstrated acute process. Moderate to large size plantar calcaneal spur and mild enthesopathy unchanged from the prior study. No visualized occult fracture. RAD/Ankle min 3 Views IMPRESSION: Status post removal of distal tibia and fibular hardware Electronically Signed: Boogie Zafar MD at 21:15 EDT , Service support ,
--- NOTE | 2020-08-05 13:17 | PCM.HP.STD ---
History of Present Illness Date of Admission: 08/05/20 Chief Complaint: s/p hardware removal right ankle The patient is a 59 year old male with hx of right ankle fracture, s/p ORIF October 18 2019. Patient has subsequently has developed symptomatic hardware to the right ankle, he keeps developing an overlying rash to the medial and lateral ankle at sites of hardware - he is concerned about possible allergy to the hardware. The rash resolves with topical corticosteroid cream, it was unresponsive to topical antifungal cream. Patient elected to proceed with excision of the hardware. Patient has no family or friends to help him after surgery. Patient also with hx of DVT to the right lower extremity after fracture ankle/ORIF and he did complete course of Eliquis for anticoagulation. Patient last had a venous Doppler 07/01/2020 which was negative for lower extremity DVT. Patient had hardware removal this morning and punch biopsy right ankle without complication. Patient was admitted for post operative observation and pain management. Past Medical History Past Medical History (Chronic Problems): Chronic Problems Hypertension (Chronic) High cholesterol (Chronic) GERD (gastroesophageal reflux disease) (Chronic) Depression (Chronic) Allergies No Known Allergies Allergy (Verified 12/29/19 09:52) Home Medications: Ambulatory Orders Medication Instructions Recorded Lisinopril/Hydrochlorothiazide 1 tablet PO DAILY 02/14/18 [Zestoretic 02/04.5 Tablet] Pravastatin Sodium 40 mg PO QHS 02/14/18 Aspirin [Aspirin EC] 81 mg PO DAILY 07/29/20 Surgical History: - - bilateral carpal tunnel surgery Psychiatric History: No pertinent psych hx Smoking Status: Former smoker - *Family History Sibling History Items: High Cholesterol, Heart Disease, Hypertension Paternal History Items: Diabetes, High Cholesterol, Heart Disease, Hypertension Review of Systems Constitutional: Denies: Chills, Fever Gastrointestinal: Denies: Nausea, Vomiting VTE Information - Inpt Only VTE Present on Admission: No VTE Mechan Device Prophylaxis: SCD's VTE Pharm Prophylaxis ordered?: Yes - Physical Exam Vitals/I&O's: Vital Signs Temp Pulse Resp BP Pulse Ox 97.3 F L 64 18 139/84 H 96 08/05/20 12:28 08/05/20 12:28 08/05/20 12:28 08/05/20 12:28 08/05/20 12:28 Oxygen Delivery Method Room Air Weight: 118.5 kg Body Mass Index (BMI) 36.6 Intake and Output for Last 24 Hours 08/03/20 08/04/20 08/05/20 23:59 23:59 23:59 Intake Total 1110 / 1110 Balance 1110 / 1110 General: Alert, Oriented x3, Cooperative, No apparent distress Extremities: Capillary Refill Less than 3 Seconds, - - Dressing to the right foot/ankle is clean, dry and intact. Microbiology Past 72 Hours 08/02/20 11:21 Interface Orders SARS-CoV-2 Antigen (Rapid) - Final Current Medications Acetaminophen (Acetaminophen 325 Mg Tablet) 650 mg PO Q6H PRN PRN PRN Reason: Pain Score 1-10 Apixaban (Apixaban 5 Mg Tablet) 5 mg PO BID [facility] Hydromorphone HCl (Hydromorphone 1 Mg/Ml Syringe) 1 mg IV Q4H PRN PRN PRN Reason: Pain Score 6-10 Lactated Ringer's () 1,000 mls @ 100 mls/hr IV .Q10H G[facility]RIELA Last Admin: 08/05/20 11:26 Dose: 100 mls/hr Documented by: Sodium Chloride () 250 mls @ 15 mls/hr IV .[id number] PRN PRN Reason: Saline Flush Sodium Chloride () 250 mls @ 15 mls/hr IV .[id number] PRN PRN Reason: Additional IVPB Infusion Oxycodone HCl (Oxycodone 5 Mg Tablet) 5 mg PO Q4H PRN PRN PRN Reason: Pain Score 4-10 Sodium Chloride (0.9% Saline Lock 10 Ml Syringe) 10 - 40 ml IV UD PRN PRN Reason: SALINE FLUSH Assessment/Plan All Active Problems Chest pain (Acute) Vertigo (Acute) Tingling of left upper extremity (Acute) Ankle fracture (Acute) Symptomatic hardware s/p hardware removal and punch biopsy right ankle on 08/05/2020 hx of right lower extremity dvt Hypertension and other comorbidities Patient underwent hardware removal and punch biopsy right ankle today without complication. No weightbearing right foot/ankle at this time, will transition to partial weightbearing with use of walker and CAM Walker boot once discharged. Keep right foot elevated. Pain management: Dilaudid 1mg IV q 4 hr prn pain, oxyir 5mg q 6 hr prn pain, acetaminophen 650mg q 6 hr prn pain. DVT Prophylaxis: patient with hx of right lower extremity DVT, will proceed with prophylactic dose of 2.5mg PO BID starting tonight to help prevent recurrent DVT. Hypertension and patient's other comorbidities - consult placed to Hospitalist Medicine Service, spoke with Dr. Gurrola, thank you for assistance. D/C Planning: Planning d/c home tomorrow if pain controlled and if patient doing well.
--- NOTE | 2020-08-05 17:10 | PCM.CONS.GEN ---
Reason for Consult Date of Consultation: 08/05/20 Reason for Consultation: medical mgmt History of Present Illness: The patient is a 59 year old M who went removal of hardware from his right ankle today. Patient had hardware placed after an ankle fracture. Patient did start developing a rash that was improved with hydrocortisone but the rash would extend proximally up his leg. Decision was made to remove the hardware as there was concern for the nidus for an allergic reaction. Currently the patient is feeling fine postoperatively. [] Past Medical History Past Medical History (Chronic Problems): Chronic Problems Hypertension (Chronic) High cholesterol (Chronic) GERD (gastroesophageal reflux disease) (Chronic) Depression (Chronic) Allergies No Known Allergies Allergy (Verified 12/29/19 09:52) Home Medications: Ambulatory Orders Medication Instructions Recorded Lisinopril/Hydrochlorothiazide 1 tablet PO DAILY 02/14/18 [Zestoretic 02/04.5 Tablet] Pravastatin Sodium 40 mg PO QHS 02/14/18 Aspirin [Aspirin EC] 81 mg PO DAILY 07/29/20 Surgical History: Surgical History (Last Updated 08/05/20 @ 17:[address] Juan Gurrola, DO) History of carpal tunnel release of both wrists Z98.890 Status post ORIF of fracture of ankle Z98.890, Z87.81 Surgical History: - - bilateral carpal tunnel surgery Psychiatric History: No pertinent psych hx Smoking Status: Former smoker - *Family History Sibling History Items: High Cholesterol, Heart Disease, Hypertension Paternal History Items: Diabetes, High Cholesterol, Heart Disease, Hypertension Review of Systems Constitutional: Denies: Anorexia, Chills, Fever, Night Sweats Eyes: Denies: Blurred vision, Double vision HEENT: Denies: Head Aches, Sinus Congestion, Sinus Drainage Cardiovascular: Denies: Chest Pain, Palpitations Respiratory: Denies: Cough, Shortness of breath at rest, Sputum production Gastrointestinal: Denies: Abdominal Pain, Nausea, Vomiting Genitourinary: Denies: Dysuria Musculoskeletal: Denies: Joint Pain, Joint Tenderness Skin: Reports: Rash Hematologic/ Lymphatic: Reports: Hx of blood clot Comment: All review of systems were negative except as mentioned above in the history of present illness and the other review of systems. - Physical Exam Vitals/I&O's: Vital Signs Temp Pulse Resp BP Pulse Ox 36.9 C 61 18 126/62 H 97 04/12/21 16:28 08/05/20 16:28 08/05/20 16:28 08/05/20 16:28 08/05/20 16:28 Oxygen Delivery Method Room Air Weight: 118.5 kg Body Mass Index (BMI) 36.6 Intake and Output for Last 24 Hours 08/03/20 08/04/20 08/05/20 23:59 23:59 23:59 Intake Total 1110 / 1110 Balance 1110 / 1110 General: Alert, Cooperative, No apparent distress HEENT: Atraumatic, Normocephalic Oral: Moist Mucosa, No Gingival or Mucosal Lesions/ Ulcerations Neck: No Nodes, Thyroid Normal Size and Texture Lungs: Clear to auscultation, Normal air movement, No rhonchi, No wheeze Cardiovascular: Regular rate, Regular Rhythm, Normal S1, Normal S2 Abdomen: Bowel Sounds Present, Soft, Non Tender, Non-Distended, No Hepato-splenomegaly, Obese Extremities: No edema, No Calf Tenderness, - - right ankle bandaged--did not remove Neurological: - - moves all extremities spontaneously. Psych/Mental Status: Normal Affect, Appropriate Current Medications Acetaminophen (Acetaminophen 325 Mg Tablet) 650 mg PO Q6H PRN PRN PRN Reason: Pain Score 1-10 Apixaban (Apixaban 2.5 Mg Tablet) 2.[address] [facility] Hydromorphone HCl (Hydromorphone 1 Mg/Ml Syringe) 1 mg IV Q4H PRN PRN PRN Reason: Pain Score 6-10 Lactated Ringer's () 1,000 mls @ 100 mls/hr IV .Q10H [facility] Last Admin: 08/05/20 11:26 Dose: 100 mls/hr Documented by: Sodium Chloride () 250 mls @ 15 mls/hr IV .[id number] PRN PRN Reason: Saline Flush Sodium Chloride () 250 mls @ 15 mls/hr IV .[id number] PRN PRN Reason: Additional IVPB Infusion Oxycodone HCl (Oxycodone 5 Mg Tablet) 5 mg PO Q4H PRN PRN PRN Reason: Pain Score 4-10 Sodium Chloride (0.9% Saline Lock 10 Ml Syringe) 10 - 40 ml IV UD PRN PRN Reason: SALINE FLUSH Assessment/Plan All Active Problems Chest pain (Acute) Vertigo (Acute) Tingling of left upper extremity (Acute) Ankle fracture (Acute) 1. s/p removal of right ankle hardware POD #0 with skin Bx follow up with podiatry for results. 2. H/O VTE had RLE VTE, provoked recommend low-dose apixaban for VTE prophylaxis until he can be weight bearing (DW Dr. Pitt, apixaban 2.5mg BID) 3. HTN continue lisinopril/HCTZ 4. HLP: continue statin 5. VTE prophylaxis: as above. apixaban. Thanks for consult. The hospital service will follow longer in the course of this hospitalization. At this point, patient has no active medical issues to prohibit discharge. Inpatient E&M: 13648 Init Hosp L2
[2020-08-05] MEDS: oxyCODONE 5 MG Tablet PO ×2 (17:12→23:29)
[2020-08-05] MEDS: Acetaminophen 325 MG Tablet 650 MG PO (19:20)
[2020-08-05] MEDS: HYDROmorphone 1 MG/ML Syringe IV (19:20)
[2020-08-05] MEDS: 0.9% Saline Lock 10 ML Syringe IV (19:21)
[2020-08-05] MEDS: APIXABAN 2.5 MG TABLET PO (21:16)
[2020-08-05 22:41] LABS: Absolute Lymphocyte Count 1.89 X10^3/uL (0.83-4.51); Absolute Neutrophil Count 5.2 X10^3/uL (2.0-7.7); Basophil# 0.03 X10^3/uL; Basophil% 0.4 % (0-1); Eosinophil# 0.17 X10^3/uL; Eosinophils% 2.2 % (0-5); Hematocrit 44.5 % (40-54); Lymphocyte # 1.89 X10^3/ul (4.0); Mean Corp Hgb Conc 31.5 g/dL (32-36); Mean Corpuscular Hgb 28.5 pg (27.0-32.0); Mean Corpuscular Volume 90.4 fL (80-94); Mean Platelet Vol. 11.4 fl (6.2-12.0); Monocyte# 0.55 X10^3/uL; NRBC Flagged by Analyzer 0 % (0-5); Neutrophil # 5.21 X10^3/uL (2.7-7.7); Neutrophil % 66.1 % (47-70); Platelet Count 216 K/mm3 (150-450); RBC Distribution Width CV 13.7 % (11.6-14.6); RBC Distribution Width SD 45.1 fl (35.1-43.9); Red Blood Count 4.92 M/mm3 (4.6-6.2); White Blood Count 7.9 K/mm3 (4.4-11.0)
[2020-08-05 22:57] LABS: AST(SGOT) 19 U/L (15-37); Alanine Aminotransfer ALT/SGPT 30 U/L (16-61); Albumin, Serum 3.2 g/dL (3.2-5.0); Alkaline Phosphatase 104 U/L (45-117); Anion Gap 3 (5-15); BUN 14 mg/dL (7-18); BUN/Creat Ratio 17.2 RATIO (10-20); Calcium,Total 8.4 mg/dL (8.5-10.1); Chloride 105 mmol/L (98-107); Creatinine, Serum 0.81 mg/dL (0.70-1.30); EST Glomerular Filtration Rate 102 mL/min (>60); Est Glom Filt Rate - Afr Amer 124 mL/min (>60); Estimated Creatinine Clearance 98.89 ml/min; Globulin 3.3 g/dL (2.2-4.2); Glucose 100 mg/dL (74-106); Potassium 3.5 mmol/L (3.5-5.1); Protein, Total 6.5 g/dL (6.4-8.2); Sodium Level 138 mmol/L (136-145)
[2020-08-06] MEDS: Lactated Ringers 1,000 ML 100 ML IV (01:57)
[2020-08-06] MEDS: HYDROmorphone 1 MG/ML Syringe IV ×3 (01:57→12:07)
[2020-08-06 05:00] VITALS: BP 116/69; PULSE 66; RESP 16; TEMP 36.8; O2SAT 97
[2020-08-06] MEDS: 0.9% Saline Lock 10 ML Syringe IV ×2 (06:22→12:07)
--- NOTE | 2020-08-06 06:59 | VDLE_ITS ---
Reason For Study: Swelling RIGHT GSV is normal. CFV is compressible, spontaneous, phasic, competent and demonstrates normal augmentation. FV is compressible, spontaneous, phasic, competent and demonstrates normal augmentation. POP V is compressible, spontaneous, phasic, competent and demonstrates normal augmentation. T/P Trunk is compressible. PTV is compressible. RT PerV is compressible. Procedure This is a venous duplex using B-mode, color flow and spectral Doppler. Exam performed portable in patient room. A preliminary report was called and/or faxed to RN. VL/Venous Duplex US, Unilateral Interpretation Summary There is no evidence of right lower extremity deep vein thrombosis. Right great saphenous vein appears patent and compressible segmentally. Ordering Physician: Jasiel Pitt Performed By: Cyn Mckeon RVT and Student
--- NOTE | 2020-08-06 07:24 | DCINST_ITS ---
Discharge Diet: Light diet - advance as tolerated Discharge Activity: May Not Drive, Use Walker - Use walker or wheelchair Weight Bearing Status: Partial weight bearing - Try to limit weight on right foot as much as possible. May partial weightbearing right foot for limited time with assistance of regular walker and surgical shoe. Keep extremity elevated above heart level: Right Leg - Keep right foot elevated with pillows for at least 50 minutes of every hour. Call your doctor if your incision/area has: Continuous Slow Oozing, Sudden Increased Bleeding, Foul Smelling Discharge Call your doctor if you observe: Fever of 101 or Higher, Shortness of breath, Chest pain, Calf discomfort, Uncontrolled pain Cleanse incision/area with: Do not get Incision Wet, Keep Dressing Clean & Dry Allergies/Adverse Reactions: Allergies No Known Allergies Allergy (Verified 12/29/19 09:52) Medications to take at Discharge Lisinopril/Hydrochlorothiazide [Zestoretic 02/04.5 Tablet] 1 tablet PO DAILY 02/14/18 Pravastatin Sodium 40 mg PO QHS 02/14/18 Apixaban [Eliquis] 2.5 mg PO BID #40 tablet 08/06/20 Hydrocodone Bitart/Apap 5-325 [[place] 5MG-325MG] 1 - 2 tablet PO Q6H PRN PRN 3 Days #20 tab 08/06/20 The following prescriptions were given: Apixaban [Eliquis] 2.5 mg PO BID #40 tablet Transmission Status: Received by [facility] Hydrocodone Bitart/Apap 5-325 [[place] 5MG-325MG] 1 - 2 tablet PO Q6H PRN PRN 3 Days #20 tab PRN Reason: Pain Transmission Status: Received by [facility] Primary Care Physician: Care Physician,No Primary [Primary Care Provider] - Test Results: Test results from this visit will be discussed in further detail at your follow- up appointment, if applicable. Please Follow Up With: Jasiel Pitt DPM - Office number: [phone] When: on 08/08/2020 at [facility], sooner if needed.
--- NOTE | 2020-08-06 07:27 | PN_ITS ---
Subjective: Patient was seen this morning for follow up on right ankle. He relates overall he is doing well, he is resting in bed. Pain controlled. No fever, chills, nausea or vomiting. He relates he feels like he can go home today. - Physical Exam Vitals/I&O's: Vital Signs Temp Pulse Resp BP Pulse Ox 98.2 F 66 16 116/69 97 08/06/20 05:00 08/06/20 05:00 08/06/20 05:00 08/06/20 05:00 08/06/20 05:00 Oxygen Delivery Method Room Air Weight: 118.5 kg Body Mass Index (BMI) 36.6 Intake and Output for Last 24 Hours 08/04/20 08/05/20 08/06/20 23:59 23:59 23:59 Intake Total 2143.33 / 2143.33 868.33 / 868.33 Output Total 800 / 800 800 / 800 Balance 1343.33 / 1343.33 68.33 / 68.33 General: Alert, Oriented x3, Cooperative, No apparent distress Extremities: No cyanosis, Capillary Refill Less than 3 Seconds, - - Dressing to the right foot/ankle/leg is clean, dry and intact with on strikethrough, no suspicion for infection, there is some noted edema to the right leg which is chronic. Skin: - - CFT < 2 seconds to all toes on the right foot, sensation intact to all toes on the right foot, patient able to move toes on the right foot. No hypersensitivity to the right foot, ankle or leg. Laboratory Results 08/05/20 21:40: WBC 7.9, RBC 4.92, Hgb 14.0, Hct 44.5, MCV 90.4, MCH 28.5, MCHC 31.5 L, RDW Std Deviation 45.1 H, RDW Coeff of Petra 13.7, Plt Count 216, MPV 11.4, Immature Gran % (Auto) 0.300, Neut % (Auto) 66.1, Lymph % (Auto) 24.0, [place] % (Auto) 7.0, Eos % (Auto) 2.2, Baso % (Auto) 0.4, Absolute Neuts (auto) 5.2, Absolute Lymphs (auto) 1.89, Nucleated RBC % 0 08/05/20 21:40: Sodium 138, Potassium 3.5, Chloride 105, Carbon Dioxide 30.0, Anion Gap 3 L, BUN 14, Creatinine 0.81, Estim Creat Clear Calc 98.89, Est GFR (MDRD) Af Amer 124, Est GFR (MDRD) Non-Af 102, BUN/Creatinine Ratio 17.2, Glucose 100, Calcium 8.4 L, Total Bilirubin 1.00, AST 19, ALT 30, Alkaline Phosphatase 104, Total Protein 6.5, Albumin 3.2, Globulin 3.3, Albumin/Globulin Ratio 1.0 Current Medications Acetaminophen (Acetaminophen 325 Mg Tablet) 650 mg PO Q6H PRN PRN PRN Reason: Pain Score 1-10 Last Admin: 08/05/20 19:20 Dose: 650 mg Documented by: Apixaban (Apixaban 2.5 Mg Tablet) 2.5 mg PO BID [facility] Last Admin: 08/05/20 21:16 Dose: 2.5 mg Documented by: Hydromorphone HCl (Hydromorphone 1 Mg/Ml Syringe) 1 mg IV Q4H PRN PRN PRN Reason: Pain Score 6-10 Last Admin: 08/06/20 06:22 Dose: 1 mg Documented by: Lactated Ringer's () 1,000 mls @ 100 mls/hr IV .Q10H [facility] Last Admin: 08/06/20 01:57 Dose: 100 mls/hr Documented by: Sodium Chloride () 250 mls @ 15 mls/hr IV .[id number] PRN PRN Reason: Saline Flush Sodium Chloride () 250 mls @ 15 mls/hr IV .[id number] PRN PRN Reason: Additional IVPB Infusion Oxycodone HCl (Oxycodone 5 Mg Tablet) 5 mg PO Q4H PRN PRN PRN Reason: Pain Score 4-10 Last Admin: 08/05/20 23:29 Dose: 5 mg Documented by: Sodium Chloride (0.9% Saline Lock 10 Ml Syringe) 10 - 40 ml IV UD PRN PRN Reason: SALINE FLUSH Last Admin: 08/06/20 06:22 Dose: 10 ml Documented by: Medical Necessity - Tobacco Use Smoking Status: Former smoker Assessment/Plan All Active Problems Chest pain (Acute) Vertigo (Acute) Tingling of left upper extremity (Acute) Ankle fracture (Acute) Symptomatic hardware s/p hardware removal and punch biopsy right ankle on 08/05/2020 hx of right lower extremity dvt Hypertension and other comorbidities Patient underwent hardware removal and punch biopsy right ankle on 08/05/2020 without complication. Limit weightbearing on right foot as much as possible but ok for partial weightbearing on right foot with assistance of a regular walker and surgical shoe. CAM Walker was checked and will not fit due to bandage. Keep right foot elevated as much as possible. Pain management: Dilaudid 1mg IV q 4 hr prn pain, oxyir 5mg q 6 hr prn pain, acetaminophen 650mg q 6 hr prn pain - plan for [place] for discharge. DVT Prophylaxis: patient with hx of right lower extremity DVT, a venous doppler was negative 5 weeks ago, but will double check prior to discharge, otherwise as long as still no dvt will proceed with prophylactic dose of 2.5mg PO BID to help prevent recurrent DVT. Hypertension and patient's other comorbidities - consult placed to Hospitalist Medicine Service. D/C Planning: Planning d/c to home this afternoon.
[2020-08-06 10:03] VITALS: BP 143/80; PULSE 66; RESP 16; TEMP 37.1; O2SAT 97
[2020-08-06] MEDS: APIXABAN 2.5 MG TABLET PO (10:07)
[2020-08-06] MEDS: Acetaminophen 325 MG Tablet 650 MG PO (10:22)
[2020-08-06] MEDS: oxyCODONE 5 MG Tablet PO (10:23)
--- NOTE | 2020-08-06 13:14 | NURSING ---
Pt's belongings returned at this time from security.
--- NOTE | 2020-08-06 14:27 | PCM.PN.HOSP ---
Subjective: slightly more pain in right ankle Vitals/I&O's: Vital Signs Temp Pulse Resp BP Pulse Ox 37.1 C 66 16 143/80 H 97 08/06/20 10:03 08/06/20 10:03 08/06/20 10:03 08/06/20 10:03 08/06/20 10:03 Oxygen Delivery Method Room Air Weight: 118.5 kg Body Mass Index (BMI) 36.6 Intake and Output for Last 24 Hours 08/04/20 08/05/20 08/06/20 23:59 23:59 23:59 Intake Total 2143.33 / 2143.33 2368.33 / 2368.33 Output Total 800 / 800 1325 / 1325 Balance 1343.33 / 1343.33 1043.33 / 1043.33 General: Alert, No apparent distress HEENT: Atraumatic, Normocephalic Oral: Moist Mucosa, No Gingival or Mucosal Lesions/ Ulcerations Neck: No Nodes, Thyroid Normal Size and Texture Lungs: Clear to auscultation, Normal air movement, No rhonchi, No wheeze, No rales Cardiovascular: Regular rate, Regular Rhythm, Normal S1, Normal S2, No murmurs Abdomen: Bowel Sounds Present, Soft, Non Tender, Non-Distended, No Hepato-splenomegaly Extremities: - - right foot and ankle wrapped--did not remove. Psych/Mental Status: Normal Affect, Appropriate Laboratory Results 08/05/20 21:40: WBC 7.9, RBC 4.92, Hgb 14.0, Hct 44.5, MCV 90.4, MCH 28.5, MCHC 31.5 L, RDW Std Deviation 45.1 H, RDW Coeff of Petra 13.7, Plt Count 216, MPV 11.4, Immature Gran % (Auto) 0.300, Neut % (Auto) 66.1, Lymph % (Auto) 24.0, [place] % (Auto) 7.0, Eos % (Auto) 2.2, Baso % (Auto) 0.4, Absolute Neuts (auto) 5.2, Absolute Lymphs (auto) 1.89, Nucleated RBC % 0 08/05/20 21:40: Sodium 138, Potassium 3.5, Chloride 105, Carbon Dioxide 30.0, Anion Gap 3 L, BUN 14, Creatinine 0.81, Estim Creat Clear Calc 98.89, Est GFR (MDRD) Af Amer 124, Est GFR (MDRD) Non-Af 102, BUN/Creatinine Ratio 17.2, Glucose 100, Calcium 8.4 L, Total Bilirubin 1.00, AST 19, ALT 30, Alkaline Phosphatase 104, Total Protein 6.5, Albumin 3.2, Globulin 3.3, Albumin/Globulin Ratio 1.0 Current Medications Acetaminophen (Acetaminophen 325 Mg Tablet) 650 mg PO Q6H PRN PRN PRN Reason: Pain Score 1-10 Last Admin: 08/06/20 10:22 Dose: 650 mg Documented by: Apixaban (Apixaban 2.5 Mg Tablet) 2.5 mg PO BID [facility] Last Admin: 08/06/20 10:07 Dose: 2.5 mg Documented by: Hydromorphone HCl (Hydromorphone 1 Mg/Ml Syringe) 1 mg IV Q4H PRN PRN PRN Reason: Pain Score 6-10 Last Admin: 08/06/20 12:07 Dose: 1 mg Documented by: Lactated Ringer's () 1,000 mls @ 100 mls/hr IV .Q10H [facility] Last Admin: 08/06/20 12:40 Dose: Not Given Documented by: Sodium Chloride () 250 mls @ 15 mls/hr IV .[id number] PRN PRN Reason: Saline Flush Sodium Chloride () 250 mls @ 15 mls/hr IV .[id number] PRN PRN Reason: Additional IVPB Infusion Oxycodone HCl (Oxycodone 5 Mg Tablet) 5 mg PO Q4H PRN PRN PRN Reason: Pain Score 4-10 Last Admin: 08/06/20 10:23 Dose: 5 mg Documented by: Sodium Chloride (0.9% Saline Lock 10 Ml Syringe) 10 - 40 ml IV UD PRN PRN Reason: SALINE FLUSH Last Admin: 08/06/20 12:07 Dose: 10 ml Documented by: Medical Necessity - Tobacco Use Smoking Status: Former smoker Assessment/Plan All Active Problems Chest pain (Acute) Vertigo (Acute) Tingling of left upper extremity (Acute) Ankle fracture (Acute) 1. s/p removal of right ankle hardware POD #0 with skin Bx follow up with podiatry for results. 2. H/O VTE had RLE VTE, provoked recommend low-dose apixaban for VTE prophylaxis until he can be weight bearing (DW Dr. Pitt, apixaban 2.5mg BID) 3. HTN continue lisinopril/HCTZ 4. HLP: continue statin 5. VTE prophylaxis: as above. apixaban. Thanks for consult. Medically stable for discharge. Inpatient E&M: 04778 Subs Hosp L2
[2020-08-06 16:16] VITALS: BP 144/77; PULSE 63; RESP 16; TEMP 36.9; O2SAT 96
== END 2020-08-06 20:18 | disposition home or self-care (01) ==
LOC: SDC 09:27 → MS3 09:27
PROVIDERS: Admitting Provider Podiatrist; Referring Provider Podiatrist; Visit Provider Podiatrist
PROC: (CPT 11104; principal; 2020-08-05 08:05)
DX: T84.89XA Other specified complication of internal orthopedic prosthetic devices, implants and grafts, initial encounter (principal); Y79.3 Surgical instruments, materials and orthopedic devices (including sutures) associated with adverse incidents; Z20.828 Contact with and (suspected) exposure to other viral communicable diseases; L30.9 Dermatitis, unspecified; E78.5 Hyperlipidemia, unspecified; I10 Essential (primary) hypertension; K21.9 Gastro-esophageal reflux disease without esophagitis; G47.30 Sleep apnea, unspecified; Z86.718 Personal history of other venous thrombosis and embolism; Z79.899 Other long term (current) drug therapy; Z79.82 Long term (current) use of aspirin; Z87.891 Personal history of nicotine dependence
CPT/HCPCS: 11104; 20680; 36415; 73600; 73610; 76000; 80053; 85025; 87426; 88305; 88312; 93971; 96361; 96374; 96376; 97161; 99218; 99251; C9803; J7120; A4216; G0378; G0379; G0463; J2405

== ENCOUNTER → 2023-06-16 | Outpatient (CLI) | payer MEDICAID, SELFPAY ==
[2023-06-16 16:40] LABS: Absolute Lymphocyte Count 1.54 X10^3/uL (0.83-4.51); Basophil# 0.03 X10^3/uL; Basophil% 0.3 % (0-1); Eosinophil# 0.07 X10^3/uL; Eosinophils% 0.8 % (0-5); Hematocrit 50.7 % (40-54); Hemoglobin 16.5 g/dL (13.0-16.5); Lymphocyte # 1.54 X10^3/ul (0.83-4.51); Lymphocyte % 16.7 % (19-41); Mean Corp Hgb Conc 32.5 g/dL (32-36); Mean Corpuscular Hgb 28.8 pg (27.0-32.0); Mean Corpuscular Volume 88.5 fL (80-94); Monocyte# 0.56 X10^3/uL; Monocyte% 6.1 % (0-10); NRBC Flagged by Analyzer 0.2 % (0-5); Neutrophil # 7.01 X10^3/uL (2.7-7.7); Neutrophil % 75.8 % (47-70); Platelet Count 233 K/mm3 (150-450); RBC Distribution Width CV 13.5 % (11.6-14.6); RBC Distribution Width SD 43.4 fl (35.1-43.9); Red Blood Count 5.73 M/mm3 (4.6-6.2); White Blood Count 9.2 K/mm3 (4.4-11.0)
[2023-06-16 16:56] LABS: AST(SGOT) 21 U/L (15-37); Alanine Aminotransfer ALT/SGPT 34 U/L (16-61); Albumin, Serum 3.9 g/dL (3.2-5.0); Alkaline Phosphatase 125 U/L (45-117); Anion Gap 7 (5-15); BUN 18 mg/dL (7-18); BUN/Creat Ratio 19.8 RATIO (10-20); Calcium,Total 9.3 mg/dL (8.5-10.1); Chloride 108 mmol/L (98-107); Creatinine, Serum 0.91 mg/dL (0.70-1.30); EST Glomerular Filtration Rate 89 mL/min (>60); Est Glom Filt Rate - Afr Amer 108 mL/min (>60); Glucose 131 mg/dL (74-106); Potassium 3.9 mmol/L (3.5-5.1); Protein, Total 7.9 g/dL (6.4-8.2); Sodium Level 140 mmol/L (136-145)
[2023-06-18 05:07] LABS: Hepatitis B Core Ab Total Negative (Negative); LDL, Direct 120295 147 mg/dL (0-99)
== END | disposition home or self-care (01) ==
LOC: BIMLAB 15:19
PROVIDERS: PCP Family Medicine; Visit Provider Family Medicine
DX: I10 Essential (primary) hypertension (principal); E78.00 Pure hypercholesterolemia, unspecified; R51.9 Headache, unspecified
CPT/HCPCS: 36415; 80053; 83721; 85025; 86704